=== PATIENT | male | born 1985 | race Caucasian/White ===

== ENCOUNTER 2016-10-18 18:08 | Inpatient (IN) | payer SELFPAY ==
[2016-10-18] VITALS (8 sets, daily range): BP systolic 89–134; BP diastolic 55–91
[~2016-10-18] VITALS: Ht 177.8 cm; Wt 95.3 kg
[~2016-10-18 18:08] MED LIST: IBUP-2055 PO
[2016-10-18] MEDS ORDERED: MIDAZOLAM 5 MG/5 ML (VERSED) VIAL ONE (18:10)
[2016-10-18] MEDS ORDERED: HALOPERIDOL 5 MG/ML (HALDOL) AMP IM ONE ×2 (18:15→18:45)
[2016-10-18] MEDS ORDERED: ETOMIDATE IV SOLN 20 MG/10 ML VIAL IV ONE (18:18)
[2016-10-18] MEDS ORDERED: SUCCINYLCHOLINE INJ 100 MG/5 ML SYR INJ ONE (18:18)
[2016-10-18] MEDS ORDERED: ROCURONIUM 50 MG/5 ML (ZEMURON) VIAL IV ONE (18:18)
[2016-10-18] MEDS ORDERED: MIDAZOLAM 5 MG/5 ML (VERSED) VIAL INJ ONE ×2 (18:18→18:45)
[2016-10-18] MEDS ORDERED: NS IV 1000 ML 1,000 ML ONE (18:20)
[2016-10-18] MEDS ORDERED: PROPOFOL DRIP (ICU) 100 ML IV ONE (18:29)
[2016-10-18] MEDS ORDERED: PROPOFOL DRIP (ICU) 100 ML IV SCH (18:45)
[2016-10-18] MEDS ORDERED: NS IV 1000 ML 1,000 ML IV SCH ×3 (18:45→23:30)
[2016-10-18] MEDS ORDERED: MIDAZOLAM 5 MG/5 ML (VERSED) VIAL IVP ONE (18:45)
--- NOTE | 2016-10-18 18:55 | ED Psychosocial ---
General Chief Complaint: Psych/Social Disorder Stated Complaint: METH USE Source: patient, police, EMS Exam Limitations: no limitations (JANUSZ UMANA APRN) History of Present Illness Time seen by provider: 18:50 Initial Comments To ER per EMS accompanied by [place] [employer] with concerns of substance abuse. Patient was apparently in someone's front yard somewhere here in [place] acting bizarrely believing that A sniper was going to shoot him. When the police arrived he requested that is around him to protect him from the Cipro. He was then loaded into the back of the ambulance where he was psychotic and belligerent and brought here. Timing/Duration: other Severity: moderate (JANUSZ UMANA APRN) Allergies and Home Medications Allergies Coded Allergies: No Known Drug Allergies (Unverified , 04/28/15) Home Medications Ibuprofen 200 Mg Tablet, 600-800 MG PO Q6H PRN for PAIN, (Reported) TAKES 3 TO 4 (200MG) TABLETS Constitutional: see HPI EENTM: see HPI Respiratory: no symptoms reported Cardiovascular: no symptoms reported Genitourinary: no symptoms reported Musculoskeletal: no symptoms reported Skin: no symptoms reported Psychiatric/Neurological: See HPI (JANUSZ UMANA APRN) Past Vpoonvr-Ckvorn-Bsctpo Hx Patient Social History Alcohol Beverage of Choice: Whiskey Drug of Choice: Meth Type Used: Cigarettes Recent Hopitalizations: No (JANUSZ UMANA APRN) Immunizations Up To Date Tetanus Booster (TDap): Unknown (JANUSZ UMANA APRN) Seasonal Allergies Seasonal Allergies: No (JANUSZ UMANA APRN) Surgeries Surgeries: Abdominal, Eye Surgery, Tonsillectomy (JANUSZ UMANA APRN) Respiratory Respiratory Disorders: Asthma Currently Using CPAP: No Currently Using BIPAP: No (JANUSZ UMANA APRN) Neurological Neurological Disorders: Seizure Disorder (JANUSZ UMANA APRN) Reproductive System Hx Reproductive Disorders: No (JANUSZ UMANA APRN) Psychosocial Behavioral Health Disorders: ADD/ADHD, Anxiety, Suicide Attempts, Depression (JANUSZ UMANA APRN) Physical Exam Vital Signs Vital Sign - Last 12Hours 10/18/16 10/18/16 10/18/16 10/18/16 18:08 19:34 20:18 20:45 Temp 98.7 Pulse 179 Resp 24 B/P (MAP) 179/108 Pulse Ox 96 O2 Delivery Mechanical Ventilator O2 Flow Rate 60.00 FiO2 60 (KATIE MARES) Vital Signs Capillary Refill : (JANUSZ UMANA APRN) General Appearance: WD/WN, no apparent distress HEENT: PERRL/EOMI, normal ENT inspection Neck: non-tender, full range of motion Respiratory: normal breath sounds, no respiratory distress, no accessory muscle use Cardiovascular: tachycardia (initial heart rate regular in the 170s) Gastrointestinal: normal bowel sounds, non tender, soft Extremities: normal range of motion, non-tender Neurologic/Psychiatric: alert Appearance/Memory: disheveled, impaired insight, impaired recent memory, impaired remote memory Behavior/Eye Contact: belligerent, compulsive, uncooperative Thoughts/Hallucinations: auditory hallucinations, delusions, flight of ideas, paranoid, scientology Skin: normal color, diaphoresis Comments On arrival to ER he was given 5 mg of intramuscular Versed as well as 5 mg of intramuscular Haldol without significant improvement in his psychosis, threatening behavior, delusions, paranoia. His heart rate was in the 170s regular narrow complex with a blood pressure in the 140 systolic. he initially refused IV start for labs and medication to control this and was extremely paranoid.. He was extremely diaphoretic. He was restrained by police officers multiple times initially during his ER stay totaling 3 police officers and two ER staff. After he was held down an IV was started, he was given 20 mg of etomidate and 100 mg of succinylcholine with the intent of intubation. He was intubated 1 attempt with a size 7.5 ET tube 21 cm at the teeth. Faint but positive breath sounds bilaterally, color change on the colorimeter, fogging ET tube and maintenance of oxygen saturation greater than 95 percent. Heart rate decreased to 130. 1901- propofol increase to 60 Mcg per kilogram as patient is moving both extremities and coughing at the tube. 50 mg rocuronium given. Pharmacy called to make drip of Versed for additional sedation. Heart rate down to 120 sinus. Blood pressure 120 systolic. Wolfe catheter draining dark yellow urine. Girlfriend at the bedside and states that he ran away from home 2 days ago and has a history of substance abuse. ET tube appeared a bit shallow on chest x- ray so it was deflated at the balloon and advanced about 1.5 cm reinflated with repeat x-ray. Both Dr. Diaz and Dr. Mares oversaw my care of the patient in the emergency room 1948-second liter of IV fluids is hanging and he's had about 500 mL of this. So total fluid intake in the emergency room is 1500 mL. His heart rate has come down nicely to the current rate of 103 sinus. Blood pressure however has dropped to 90/65. He remains on a propofol and Versed drip. We did reduce the rate of the propofol and continue the Versed drip at 10 mg an hour. He has been transported to ICU at this time. (JANUSZ UMANA APRN) Progress/Results/Core Measures Results/Orders Lab Results Laboratory Tests Test 10/18/16 18:42 10/18/16 18:48 10/18/16 19:07 10/18/16 23:52 Range/Units White Blood Count 10.7 4.3-11.0 10^3/uL Red Blood Count 5.36 4.35-5.85 10^6/uL Hemoglobin 15.7 13.3-17.7 G/DL Hematocrit 45 40-54 % Mean Corpuscular Volume 84 80-99 FL Mean Corpuscular Hemoglobin 29 25-34 PG Mean Corpuscular Hemoglobin Concent 35 32-36 G/DL Red Cell Distribution Width 13.7 10.0-14.5 % Platelet Count 252 130-400 10^3/uL Mean Platelet Volume 9.9 7.4-10.4 FL Neutrophils (%) (Auto) 76 H 42-75 % Lymphocytes (%) (Auto) 15 12-44 % Monocytes (%) (Auto) 6 0-12 % Eosinophils (%) (Auto) 1 0-10 % Basophils (%) (Auto) 1 0-10 % Neutrophils # (Auto) 8.2 H 1.8-7.8 X 10^3 Lymphocytes # (Auto) 1.6 1.0-4.0 X 10^3 Monocytes # (Auto) 0.7 0.0-1.0 X 10^3 Eosinophils # (Auto) 0.1 0.0-0.3 10^3/uL Basophils # (Auto) 0.1 0.0-0.1 10^3/uL Sodium Level 146 H 135-145 MMOL/L Potassium Level 3.0 L 3.6-5.0 MMOL/L Chloride Level 108 H 98-107 MMOL/L Carbon Dioxide Level 20 L 21-32 MMOL/L Anion Gap 18 H 5-14 MMOL/L Blood Urea Nitrogen 17 7-18 MG/DL Creatinine 1.26 0.60-1.30 MG/DL Estimat Glomerular Filtration Rate > 60 BUN/Creatinine Ratio 13 Glucose Level 110 H 70-105 MG/DL Calcium Level 9.0 8.5-10.1 MG/DL Total Bilirubin 1.6 H 0.1-1.0 MG/DL Aspartate Amino Transf (AST/SGOT) 33 5-34 U/L Alanine Aminotransferase (ALT/SGPT) 42 0-55 U/L Alkaline Phosphatase 77 40-136 U/L Total Creatine Kinase 684 H 30-200 U/L Myoglobin 618.8 H 10.0-92.0 NG/ML Total Protein 7.5 6.4-8.2 GM/DL Albumin 4.6 H 3.2-4.5 GM/DL Salicylates Level < 5.0 L 5.0-20.0 MG/DL Acetaminophen Level < 10 L 10-30 UG/ML Serum Alcohol < 10 <10 MG/DL Urine Color VISHAL H Urine Clarity SLIGHTLY CLOUDY Urine pH 7 5-9 Urine Specific [place] 1.015 L 1.016-1.022 Urine Protein 2+ H NEGATIVE Urine Glucose (UA) NEGATIVE NEGATIVE Urine Ketones 1+ H NEGATIVE Urine Nitrite NEGATIVE NEGATIVE Urine Bilirubin 1+ H NEGATIVE Urine Urobilinogen 8 H NORMAL MG/DL Urine Leukocyte Esterase 1+ H NEGATIVE Urine RBC (Auto) 1+ H NEGATIVE Urine RBC 0-2 /HPF Urine WBC 0-2 /HPF Urine Squamous Epithelial Cells 0-2 /HPF Urine Crystals PRESENT H /LPF Urine Uric Acid Crystals MODERATE H /LPF Urine Bacteria NONE /HPF Urine Casts NONE /LPF Urine Mucus NEGATIVE /LPF Urine Culture Indicated NO Urine Opiates Screen POSITIVE H NEGATIVE Urine Oxycodone Screen NEGATIVE NEGATIVE Urine Methadone Screen NEGATIVE NEGATIVE Urine Propoxyphene Screen NEGATIVE NEGATIVE Urine Barbiturates Screen NEGATIVE NEGATIVE Ur Tricyclic Antidepressants Screen NEGATIVE NEGATIVE Urine Phencyclidine Screen NEGATIVE NEGATIVE Urine Amphetamines Screen POSITIVE H NEGATIVE Urine Methamphetamines Screen POSITIVE H NEGATIVE Urine Benzodiazepines Screen NEGATIVE NEGATIVE Urine Cocaine Screen NEGATIVE NEGATIVE Urine Cannabinoids Screen NEGATIVE NEGATIVE Blood Gas Puncture Site LEFT RADIAL RIGHT RADIAL Blood Gas Patient Temperature 98.8 97.2 Arterial Blood pH 7.34 *L 7.40 7.37-7.43 Arterial Blood Partial Pressure CO2 44 35 35-45 MMHG Arterial Blood Partial Pressure O2 305 H 132 H 79-93 MMHG Arterial Blood HCO3 23 21 L 23-27 MMOL/L Arterial Blood Total CO2 24.6 22.3 21.0-31.0 MMOL/L Arterial Blood Oxygen Saturation 100 99 94-100 % Arterial Blood Base Excess -1.6 -3.0 L -2.5-2.5 MMOL/L Marcus Test YES-POS YES-POS Blood Gas Ventilator Setting YES YES Blood Gas Inspired Oxygen 100% 45% Test 10/19/16 00:25 10/19/16 04:10 10/19/16 04:19 Range/Units Potassium Level 3.7 3.6 3.6-5.0 MMOL/L Lactic Acid Level 0.52 0.50-2.00 MMOL/L Magnesium Level 2.5 H 2.5 H 1.8-2.4 MG/DL Total Creatine Kinase 1023 H 1093 H 30-200 U/L Blood Gas Puncture Site LEFT RADIAL Blood Gas Patient Temperature 95.3 Arterial Blood pH 7.44 H 7.37-7.43 Arterial Blood Partial Pressure CO2 32 L 35-45 MMHG Arterial Blood Partial Pressure O2 94 H 79-93 MMHG Arterial Blood HCO3 21 L 23-27 MMOL/L Arterial Blood Total CO2 22.5 21.0-31.0 MMOL/L Arterial Blood Oxygen Saturation 99 94-100 % Arterial Blood Base Excess -2.5 -2.5-2.5 MMOL/L Marcus Test YES-POS Blood Gas Ventilator Setting YES Blood Gas Inspired Oxygen 30% White Blood Count 11.4 H 4.3-11.0 10^3/uL Red Blood Count 4.60 4.35-5.85 10^6/uL Hemoglobin 13.7 13.3-17.7 G/DL Hematocrit 39 L 40-54 % Mean Corpuscular Volume 85 80-99 FL Mean Corpuscular Hemoglobin 30 25-34 PG Mean Corpuscular Hemoglobin Concent 35 32-36 G/DL Red Cell Distribution Width 14.0 10.0-14.5 % Platelet Count 193 130-400 10^3/uL Mean Platelet Volume 9.9 7.4-10.4 FL Neutrophils (%) (Auto) 60 42-75 % Lymphocytes (%) (Auto) 30 12-44 % Monocytes (%) (Auto) 7 0-12 % Eosinophils (%) (Auto) 3 0-10 % Basophils (%) (Auto) 0 0-10 % Neutrophils # (Auto) 6.9 1.8-7.8 X 10^3 Lymphocytes # (Auto) 3.4 1.0-4.0 X 10^3 Monocytes # (Auto) 0.8 0.0-1.0 X 10^3 Eosinophils # (Auto) 0.3 0.0-0.3 10^3/uL Basophils # (Auto) 0.1 0.0-0.1 10^3/uL Sodium Level 144 135-145 MMOL/L Chloride Level 116 H 98-107 MMOL/L Carbon Dioxide Level 19 L 21-32 MMOL/L Anion Gap 9 5-14 MMOL/L Blood Urea Nitrogen 16 7-18 MG/DL Creatinine 0.84 0.60-1.30 MG/DL Estimat Glomerular Filtration Rate > 60 BUN/Creatinine Ratio 19 Glucose Level 74 70-105 MG/DL Calcium Level 8.0 L 8.5-10.1 MG/DL Phosphorus Level 2.7 2.3-4.7 MG/DL (KATIE MARES) My Orders Orders - KATIE MARES Haloperidol Injection (Haldol Injectio (10/18/16 18:15) (KATIE MARES) Medications Given in ED Current Medications Medications Dose Ordered Sig/Yvette Route Start Time Stop Time Status Last Admin Dose Admin Haloperidol Lactate 5 mg ONCE ONCE IM 10/18/16 18:45 10/18/16 18:47 DC 10/18/16 18:13 5 MG Midazolam HCl 5 mg ONCE ONCE INJ 10/18/16 18:45 10/18/16 18:47 DC 10/18/16 18:19 5 MG Midazolam HCl 5 mg ONCE ONCE IVP 10/18/16 18:45 10/18/16 18:47 DC 10/18/16 18:35 5 MG (KATIE MARES) Vital Signs/I&O Vital Sign - Last 12Hours 10/18/16 10/18/16 10/18/16 10/18/16 19:34 19:58 20:18 20:30 Temp 98.8 Pulse 113 96 95 Resp 16 15 B/P (MAP) 94/58 96/55 Pulse Ox 97 99 O2 Delivery Mechanical Ventilator Mechanical Ventilator FiO2 60 10/18/16 10/18/16 10/18/16 10/18/16 20:31 20:45 21:45 22:00 Temp 96.6 Pulse 95 95 Resp 26 B/P (MAP) 134/91 89/72 Pulse Ox 95 O2 Delivery Mechanical Ventilator Mechanical Ventilator O2 Flow Rate 60.00 60.00 10/18/16 10/18/16 10/18/16 10/18/16 22:35 22:45 23:30 23:45 Pulse 87 89 86 84 Resp 15 15 14 15 B/P (MAP) 107/70 106/74 Pulse Ox 98 96 96 99 O2 Delivery Mechanical Ventilator Mechanical Ventilator O2 Flow Rate 50.00 50.00 FiO2 50 45 10/18/16 10/19/16 10/19/16 10/19/16 23:49 00:00 01:00 01:00 Pulse 85 80 76 Resp 15 B/P (MAP) 127/88 Pulse Ox 99 O2 Delivery Mechanical Ventilator Mechanical Ventilator O2 Flow Rate 50.00 FiO2 45 10/19/16 10/19/16 10/19/16 10/19/16 01:11 02:00 02:59 03:00 Pulse 76 75 75 Resp 15 15 15 B/P (MAP) 123/88 122/83 Pulse Ox 100 100 100 O2 Delivery Mechanical Ventilator Mechanical Ventilator Mechanical Ventilator O2 Flow Rate 50.00 50.00 FiO2 60 35 10/19/16 10/19/16 10/19/16 10/19/16 03:18 03:57 04:00 05:00 Pulse 76 78 79 85 Resp 15 15 15 B/P (MAP) 118/75 108/73 Pulse Ox 99 98 95 O2 Delivery Mechanical Ventilator Mechanical Ventilator O2 Flow Rate 35.00 35.00 FiO2 30 10/19/16 10/19/16 10/19/16 06:00 06:25 06:29 Pulse 96 95 95 Resp 14 15 B/P (MAP) 109/72 Pulse Ox 96 96 96 O2 Delivery Mechanical Ventilator O2 Flow Rate 35.00 FiO2 30 30 (KATIE MARES) Progress Note : Time: 06:36 Progress Note I personally helped oversee and liver care to the patient alongside Janusz Umana NP. I agree with the above assessment, findings and plan. Patient was appropriately treated to keep himself and others safe and family was present and all questions were answered and information was given to their satisfaction. I oversaw an ablation which was placed on first attempt with 7.5 at 21 cm at the teeth and then had to be advanced to get down closer to the matthew. Patient was burning through the propofol despite maximal dosing so Versed drip was added. Pharmacy was consulted to help with dosing. (KATIE MARES) Departure Communication Time/Spoke to Admitting Phy: 19:21 Communication Discussed the case with Dr. Beth who is on-call for [facility]. We will admit the patient to the ICU with eICU to manage. (JANUSZ UMANA APRN) Impression Impression: Primary Impression: acute violent psychosis Additional Impression: Substance abuse Disposition: ADMITTED INPATIENT Condition: Critical Admissions Decision to Admit Reason: Admit from ER (General) Decision to Admit/Date: Oct 18, 2016 Time/Decision to Admit Time: 19:22 (JANUSZ UMANA APRN) Departure-Patient Inst. Referrals: [facility] (PCP/Family) Primary Care Physician JANUSZ UMANA APRN Oct 18, 2016 18:55 KATIE MARES Oct 19, 2016 06:38
[2016-10-18 18:57] LABS: BASOPHILS # (AUTO) 0.1 10^3/uL (0.0-0.1); BASOPHILS % (AUTO) 1 % (0-10); EOSINOPHILS # (AUTO) 0.1 10^3/uL (0.0-0.3); EOSINOPHILS % (AUTO) 1 % (0-10); LYMPHOCYTES # (AUTO) 1.6 X 10^3 (1.0-4.0); LYMPHOCYTES % (AUTO) 15 % (12-44); MEAN CORPUSCULAR HEMOGLOBIN 29 PG (25-34); MEAN CORPUSCULAR HGB CONC 35 G/DL (32-36); MEAN CORPUSCULAR VOLUME 84 FL (80-99); MEAN PLATELET VOLUME 9.9 FL (7.4-10.4); MONOCYTES # (AUTO) 0.7 X 10^3 (0.0-1.0); MONOCYTES % (AUTO) 6 % (0-12); NEUTROPHILS # (AUTO) 8.2 X 10^3 (1.8-7.8); NEUTROPHILS % (AUTO) 76 % (42-75); PLATELET COUNT 252 10^3/uL (130-400); RED BLOOD COUNT 5.36 10^6/uL (4.35-5.85); RED CELL DISTRIBUTION WIDTH 13.7 % (10.0-14.5); WHITE BLOOD COUNT 10.7 10^3/uL (4.3-11.0)
[2016-10-18 18:59] LABS: BILIRUBIN,URINE 1+ (NEGATIVE); KETONES,URINE 1+ (NEGATIVE); LEUKOCYTE ESTERASE ,URINE 1+ (NEGATIVE); NITRITE,URINE NEGATIVE (NEGATIVE); PH,URINE 7 (5-9); PROTEIN,URINE 2+ (NEGATIVE); UROBILINOGEN,URINE 8 MG/DL (NORMAL)
[2016-10-18 19:10] LABS: ALANINE AMINOTRANSFERASE 42 U/L (0-55); ALBUMIN 4.6 GM/DL (3.2-4.5); ALCOHOL < 10 MG/DL (<10); ANION GAP 18 MMOL/L (5-14); ASPARTATE AMINO TRANSFERASE 33 U/L (5-34); BILIRUBIN,TOTAL 1.6 MG/DL (0.1-1.0); BLOOD UREA NITROGEN 17 MG/DL (7-18); BUN/CREATININE RATIO 13; CARBON DIOXIDE 20 MMOL/L (21-32); CHLORIDE 108 MMOL/L (98-107); CREATININE SERUM 1.26 MG/DL (0.60-1.30); GFR ESTIMATED > 60; GLUCOSE 110 MG/DL (70-105); SALICYLATE < 5.0 MG/DL (5.0-20.0); SODIUM 146 MMOL/L (135-145); TOTAL PROTEIN 7.5 GM/DL (6.4-8.2)
[2016-10-18 19:15] LABS: SQUAMOUS EPITHELIAL CELL,UR 0-2 /HPF; URIC ACID CRYSTALS,URINE MODERATE /LPF; WBC,URINE 0-2 /HPF
[2016-10-18 19:22] LABS: ABG BASE EXCESS -1.6 MMOL/L (-2.5-2.5); ABG HCO3 23 MMOL/L (23-27); ABG OXYGEN SATURATION 100 % (94-100); ABG PCO2 44 MMHG (35-45); ABG PO2 305 MMHG (79-93); ABG TCO2 24.6 MMOL/L (21.0-31.0)
[2016-10-18 19:25] LABS: ABG PH 7.34 (7.37-7.43)
[2016-10-18 19:26] LABS: ALLENS TEST YES-POS; PATIENT TEMP 98.8
[2016-10-18] MEDS: MIDAZOLAM INJECTION FOR DRIPS 50 MG in NS (IVPB) 90 ML IV SCH (19:34)
[2016-10-18 19:49] LABS: MYOGLOBIN SERUM 618.8 NG/ML (10.0-92.0)
--- NOTE | 2016-10-18 19:51 | Diagnostic Imaging Report ---
INDICATION: Shortness of breath. EXAMINATION: Portable chest at 7:01 p.m. FINDINGS: There is an ET tube with the tip at the thoracic inlet. NG tube projects over the stomach. Heart size and pulmonary vascularity are normal. Lungs are clear. IMPRESSION: No acute abnormalities in the chest. ET tube projects over the trachea at the thoracic inlet and could be safely advanced 7 cm. Dictated by: Dictated on workstation # [id number]
--- NOTE | 2016-10-18 19:52 | Diagnostic Imaging Report ---
INDICATION: ET tube reposition. EXAMINATION: Portable chest at 7:25 p.m. FINDINGS: ET tube has been advanced just beyond the thoracic inlet. Heart size and pulmonary vascularity are normal. Lungs are clear. There are no effusions or pneumothoraces. NG tube projects over the stomach. IMPRESSION: No acute abnormalities in the chest. Dictated by: Dictated on workstation # [id number]
--- NOTE | 2016-10-18 19:55 | Diagnostic Imaging Report ---
INDICATION: ET tube placement. Comparison with 01:27 p.m. FINDINGS: ET tube is present overlying the tracheal shadow at the thoracic inlet. NG tube is present and tip is looped within the fundus of the stomach. The lungs are well aerated. No infiltrates are present. Heart is not enlarged. IMPRESSION: Satisfactory ET tube and NG tube position. Dictated by: Dictated on workstation # [id number]
--- NOTE | 2016-10-18 19:56 | Diagnostic Imaging Report ---
INDICATION: ET tube repositioning. FINDINGS: ET tube is present overlying the tracheal shadow and tip is at the level of the aortic arch. NG tube is present with tip looped in the fundus of the stomach. The lungs are well aerated. IMPRESSION: Satisfactory ET tube and NG tube position. Dictated by: Dictated on workstation # [id number]
[2016-10-18 20:02] LABS: ACETAMINOPHEN < 10 UG/ML (10-30)
[2016-10-18] MEDS ORDERED: CATHETER FLUSH 10 ML SYR IV PRN (20:30)
[2016-10-18] MEDS: MIDAZOLAM DRIP 50 MG/NS 90 ML (TOTAL VOLUME 100 ML) IV SCH ×2 (20:31)
[2016-10-18] MEDS: NS IV 1000 ML 1,000 ML IV SCH (20:31)
[2016-10-18] MEDS: PANTOPRAZOLE 40 MG/10 ML (PROTONIX) VIAL IV SCH (20:35)
[2016-10-18] MEDS ORDERED: fentaNYL INJECTION 100 MCG/2 ML AMP ONE (20:59)
[2016-10-18] MEDS ORDERED: LORazepam INJ 2 MG/ML (ATIVAN) VIAL ONE (21:00)
[2016-10-18] MEDS ORDERED: fentaNYL INJECTION 100 MCG/2 ML AMP IV ONE (22:00)
[2016-10-18] MEDS ORDERED: LORazepam INJ 2 MG/ML (ATIVAN) VIAL IV ONE (22:00)
[2016-10-18] MEDS: PROPOFOL DRIP (ICU) 100 ML IV SCH (23:49)
[2016-10-18 23:57] LABS: ABG HCO3 21 MMOL/L (23-27); ABG OXYGEN SATURATION 99 % (94-100); ABG PCO2 35 MMHG (35-45); ABG PO2 132 MMHG (79-93); ABG TCO2 22.3 MMOL/L (21.0-31.0)
[2016-10-18 23:58] LABS: ALLENS TEST YES-POS
[2016-10-18 23:59] LABS: PATIENT TEMP 97.2
[2016-10-19] VITALS (35 sets, daily range): BP systolic 100–143; BP diastolic 65–89
[2016-10-19 01:11] LABS: MAGNESIUM 2.5 MG/DL (1.8-2.4); POTASSIUM 3.7 MMOL/L (3.6-5.0)
[2016-10-19] MEDS: PROPOFOL DRIP (ICU) 100 ML IV SCH ×6 (03:18→20:49)
[2016-10-19 04:21] LABS: ABG BASE EXCESS -2.5 MMOL/L (-2.5-2.5); ABG HCO3 21 MMOL/L (23-27); ABG OXYGEN SATURATION 99 % (94-100); ABG PCO2 32 MMHG (35-45); ABG PH 7.44 (7.37-7.43); ABG PO2 94 MMHG (79-93); ABG TCO2 22.5 MMOL/L (21.0-31.0)
[2016-10-19 04:23] LABS: ALLENS TEST YES-POS; PATIENT TEMP 95.3
[2016-10-19 04:29] LABS: BASOPHILS # (AUTO) 0.1 10^3/uL (0.0-0.1); BASOPHILS % (AUTO) 0 % (0-10); EOSINOPHILS # (AUTO) 0.3 10^3/uL (0.0-0.3); EOSINOPHILS % (AUTO) 3 % (0-10); LYMPHOCYTES # (AUTO) 3.4 X 10^3 (1.0-4.0); LYMPHOCYTES % (AUTO) 30 % (12-44); MEAN CORPUSCULAR HEMOGLOBIN 30 PG (25-34); MEAN CORPUSCULAR HGB CONC 35 G/DL (32-36); MEAN CORPUSCULAR VOLUME 85 FL (80-99); MEAN PLATELET VOLUME 9.9 FL (7.4-10.4); MONOCYTES # (AUTO) 0.8 X 10^3 (0.0-1.0); MONOCYTES % (AUTO) 7 % (0-12); NEUTROPHILS # (AUTO) 6.9 X 10^3 (1.8-7.8); NEUTROPHILS % (AUTO) 60 % (42-75); PLATELET COUNT 193 10^3/uL (130-400); WHITE BLOOD COUNT 11.4 10^3/uL (4.3-11.0)
[2016-10-19 04:52] LABS: ANION GAP 9 MMOL/L (5-14); BLOOD UREA NITROGEN 16 MG/DL (7-18); BUN/CREATININE RATIO 19; CARBON DIOXIDE 19 MMOL/L (21-32); CHLORIDE 116 MMOL/L (98-107); CREATINE KINASE 1093 U/L (30-200); CREATININE SERUM 0.84 MG/DL (0.60-1.30); GFR ESTIMATED > 60; GLUCOSE 74 MG/DL (70-105); MAGNESIUM 2.5 MG/DL (1.8-2.4); PHOSPHORUS 2.7 MG/DL (2.3-4.7); POTASSIUM 3.6 MMOL/L (3.6-5.0); SODIUM 144 MMOL/L (135-145)
[2016-10-19] MEDS: NS IV 1000 ML 1,000 ML IV SCH ×6 (04:56→15:33)
[2016-10-19] MEDS: POTASSIUM CL 10MEQ/50ML IVPB 50 ML IV SCH ×2 (04:56→06:22)
[2016-10-19] MEDS: MAGNESIUM 1 GM/100 ML IVPB 100 ML IV SCH (04:56)
--- NOTE | 2016-10-19 06:26 | Pulmonary Consultation ---
History of Present Illness History of Present Illness Date of Consultation 10/19/16 06:21 Time Seen by Provider: 06:21 Date of Admission History of Present Illness 31yo presented to ED via PD and EMS secondary to acute violent paranoid psychosis. Pt was in a front yard of a stranger acting bizarre believing a sniper was shooting at him. Pt's girl friend stated that he has been missing x 2 -3 days. UDS was positive for opiates, methamphetamines, PT was intubated in ED to control behavior. I am consulted for ICU management. Unable to obtain ROS seocndary to sedation T Allergies and Home Medications Allergies Coded Allergies: No Known Drug Allergies (Unverified , 04/28/15) Home Medications Ibuprofen 200 Mg Tablet, 600-800 MG PO Q6H PRN for PAIN, (Reported) TAKES 3 TO 4 (200MG) TABLETS Past Izybcyr-Tbahff-Xcmsym Hx Patient Social History Alcohol Use: Regular Use Number of Drinks Today: GG Alcohol Beverage of Choice: Whiskey Recreational Drug Use: Yes (METH) Drug of Choice: METH Smoking Status: Current Everyday Smoker Type Used: Cigarettes Recent Foreign Travel: No Contact w/Someone Who Travel: No Recent Infectious Disease Expo: No Recent Hopitalizations: No Physical Abuse: No Sexual Abuse: No Immunizations Up To Date Tetanus Booster (TDap): Unknown Seasonal Allergies Seasonal Allergies: No Surgeries History of Surgeries: Yes Surgeries: Abdominal, Eye Surgery, Tonsillectomy Respiratory History of Respiratory Disorde: Yes (ASTHMA CHILD) Respiratory Disorders: Asthma Currently Using CPAP: No Currently Using BIPAP: No Cardiovascular History of Cardiac Disorders: No Neurological History of Neurological Disord: Yes Neurological Disorders: Seizure Disorder Reproductive System Hx Reproductive Disorders: No Genitourinary History of Genitourinary Disor: No Gastrointestinal History of Gastrointestinal Di: No Musculoskeletal History of Musculoskeletal Dis: No Endocrine History of Endocrine Disorders: No HEENT History of HEENT Disorders: No Cancer History of Cancer: No Psychosocial History of Psychiatric Problem: Yes (POLYSUBSTANCE ABUSE; HERE 04/2015 FOR SUICIDAL IDEATIONS--NO PSYCH ADMITS) Behavioral Health Disorders: ADD/ADHD, Anxiety, Suicide Attempts, Depression Suicide Risk Score: 0 Integumentary History of Skin or Integumenta: No Blood Transfusions History of Blood Disorders: No Adverse Reaction to a Blood Tr: No Review of Systems Time Seen by Provider: 08:39 Exam Exam Vital Signs Date Time Temp Pulse Resp B/P (MAP) Pulse Ox O2 Delivery O2 Flow Rate FiO2 10/19/16 06:00 96 14 109/72 96 Mechanical Ventilator 35.00 10/19/16 05:00 85 15 108/73 95 Mechanical Ventilator 35.00 10/19/16 04:00 79 15 118/75 98 Mechanical Ventilator 35.00 10/19/16 03:57 78 15 99 30 10/19/16 03:18 76 10/19/16 03:00 75 15 122/83 100 Mechanical Ventilator 50.00 10/19/16 02:59 75 15 100 35 10/19/16 02:00 76 15 123/88 100 Mechanical Ventilator 50.00 10/19/16 01:11 Mechanical Ventilator 60 10/19/16 01:00 76 10/19/16 01:00 80 15 127/88 99 Mechanical Ventilator 50.00 10/19/16 00:00 Mechanical Ventilator 45 10/18/16 23:49 85 10/18/16 23:45 84 15 99 45 10/18/16 23:30 86 14 106/74 96 Mechanical Ventilator 50.00 10/18/16 22:45 89 15 107/70 96 Mechanical Ventilator 50.00 10/18/16 22:35 87 15 98 50 10/18/16 22:00 96.6 10/18/16 21:45 95 26 89/72 95 Mechanical Ventilator 60.00 10/18/16 20:45 134/91 Mechanical Ventilator 60.00 10/18/16 20:31 95 10/18/16 20:30 95 10/18/16 20:18 96 15 99 60 10/18/16 19:58 96/55 Mechanical Ventilator 10/18/16 19:34 98.8 113 16 94/58 97 Mechanical Ventilator 10/18/16 18:08 98.7 179 24 179/108 96 General Appearance: No Apparent Distress (pt is sedated on vent ) Neck: Full Range of Motion, Supple, No JVD Respiratory: Lungs Clear, Normal Breath Sounds, No Accessory Muscle Use, No Respiratory Distress Cardiovascular: Regular Rate, Rhythm, No Edema, Normal Peripheral Pulses Capillary Refill: Less Than 3 Seconds Gastrointestinal: normal bowel sounds, non tender, soft Extremity: Normal Capillary Refill, Normal Inspection Neurologic/Psychiatric: No Alert, No Oriented x3 Skin: Normal Color, Warm/Dry Lymphatic: No Adenopathy Results Lab Laboratory Tests 10/18/16 18:42 10/19/16 00:25 10/19/16 04:19 Assessment/Plan Assessment/Plan Acute violent psychosis secondary to methamphetamine use -Pt was intubated and sedated in ED to control behavior -Will leave on ventilator for another approx 24hrs -Pt has recently been in rehab -Add fentanyl gtt at 12.5-25mcg/hr -- decrease Diprivan as tolerated Aspiration pneumonia -start zosyn -check sputum culture Hypoglycemia -start TF Rhabdomyolysis secondary to methamphetamine use -Will give another liter of IVF and increase base rate to 150cc/hr -Monitor Metabolic acidosis -IVF and monitor Hx of heavy alcohol use -monitor for withdrawal -seizure precautions - pt does have hx -Bananna bag - Clinical Quality Measures DVT/VTE Risk/Contraindication: Risk Factor Score Per Nursin RFS Level Per Nursing on Admit: 1=Low/No VTE PPX DORI CALABRESE DO Oct 19, 2016 06:26
[2016-10-19] MEDS ORDERED: PIPERACILLIN SODIUM/TAZOBACTAM 4.5 GM in NS (IVPB) 100 ML IV SCH (06:45)
[2016-10-19] MEDS ORDERED: RT-ALBUTEROL/IPRATROPIUM 3 ML (DUONEB) VIAL INH PRN ×2 (06:45→07:15)
[2016-10-19] MEDS ORDERED: RT-ALBUTEROL/IPRATROPIUM 3 ML (DUONEB) VIAL INH SCH ×2 (07:00→09:00)
[2016-10-19] MEDS ORDERED: PIPERACILLIN/TAZOBACTAM 4.5 GM/NS 100 ML IV NR ×2 (07:00)
[2016-10-19] MEDS ORDERED: fentaNYL INJECTION 1,250 MCG in NS (IVPB) 225 ML IV SCH (07:15)
[2016-10-19] MEDS: MIDAZOLAM INJECTION FOR DRIPS 50 MG in NS (IVPB) 90 ML IV SCH (07:57)
[2016-10-19] MEDS: ENOXAPARIN 40 MG/0.4 ML (LOVENOX) SYR SC SCH (08:48)
[2016-10-19] MEDS: THIAMINE INJECTION 100 MG, FOLIC ACID INJECTION 1 MG, VITAMIN MULTI INJECTION 10 ML, MA... IV SCH ×5 (08:49)
[2016-10-19] MEDS: PANTOPRAZOLE 40 MG/10 ML (PROTONIX) VIAL IV SCH (08:49)
[2016-10-19] MEDS ORDERED: THIAMINE INJECTION 100 MG, FOLIC ACID INJECTION 1 MG, VITAMIN MULTI INJECTION 10 ML, MA... IV SCH ×5 (09:00)
--- NOTE | 2016-10-19 09:16 | Diagnostic Imaging Report ---
INDICATION: Dyspnea, followup intubation. DISCUSSION: Single portable upright view of the chest was obtained, comparison 10/18/2016. Endotracheal tube remains in good position within the midtrachea. Enteric tube tip remains in the gastric body. Stable normal heart size. Low lung volumes with mild atelectasis noted within the right lung base. No pleural fluid or pneumothorax. IMPRESSION: 1. Stable support lines. No acute cardiopulmonary process. Dictated by: Dictated on workstation # [id number]
[2016-10-19] MEDS: RT-ALBUTEROL/IPRATROPIUM 3 ML (DUONEB) VIAL INH SCH ×4 (10:13→23:07)
--- NOTE | 2016-10-19 11:48 | History & Physical-Hospitalist ---
HPI History of Present Illness: HPI/Chief Complaint CC: Psychotic episode HPI: This is a 31 yoWM pt of [facility] that required intubation in ER due to violent behavior when found down in front yard of house. 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 Beth. Source: RN/MD Exam Limitations: clinical condition Date Seen 10/19/16 Time Seen by Provider: 10:00 Attending Physician Rose Beth DO PCP [facility] [place] Referring Physician Date of Admission Oct 18, 2016 at 19:20 Home Medications & Allergies Home Medications Reviewed patient Home Medication Reconciliation Form Allergies Allergies Coded Allergies No Known Drug Allergies (Unverified04/28/15) Past Gmbmzja-Dallwm-Iatwyx Hx Patient Social History Alcohol Use: Regular Use Number of Drinks Today: GG Alcohol Beverage of Choice: Whiskey Recreational Drug Use: Yes (METH) Drug of Choice: METH Smoking Status: Current Everyday Smoker Type Used: Cigarettes Physical Abuse Screen: No Sexual Abuse: No Recent Foreign Travel: No Contact w/other who traveled: No Recent Hopitalizations: No Recent Infectious Disease Expo: No Immunizations Up To Date Tetanus Booster (TDap): Unknown Seasonal Allergies Seasonal Allergies: No Surgeries Yes Abdominal, Eye Surgery, Tonsillectomy Respiratory Yes (ASTHMA CHILD) Asthma Currently Using CPAP: No Currently Using BIPAP: No Cardiovascular No Neurological Yes Seizure Disorder Reproductive System Hx Reproductive Disorders: No Genitourinary No Gastrointestinal No Musculoskeletal No Endocrine History of Endocrine Disorders: No HEENT History of HEENT Disorders: No Cancer No Psychosocial History of Psychiatric Problem: Yes (POLYSUBSTANCE ABUSE; HERE 04/2015 FOR SUICIDAL IDEATIONS--NO PSYCH ADMITS) Behavioral Health Disorders: ADD/ADHD, Anxiety, Suicide Attempts, Depression Integumentary History of Skin or Integumenta: No Blood Transfusions History of Blood Disorders: No Adverse Reaction to a Blood Tr: No Review of Systems ROS-Unable to Obtain: unable to ascertain due to intubation Constitutional: see HPI Physical Exam Physical Exam Vital Signs Vital Sign - Last 12Hours 10/18/16 10/18/16 10/18/16 10/18/16 18:08 19:34 20:18 20:45 Temp 98.7 Pulse 179 Resp 24 B/P (MAP) 179/108 Pulse Ox 96 O2 Delivery Mechanical Ventilator O2 Flow Rate 60.00 FiO2 60 Capillary Refill : Less Than 3 Seconds General Appearance: No Apparent Distress, WD/WN Eyes: Bilateral Eye Normal Inspection, Bilateral Eye PERRL HEENT: Other (intubated) Respiratory: Lungs Clear, Normal Breath Sounds, Other (on ventilator) Cardiovascular: Regular Rate, Rhythm, No Edema, No Gallop, No JVD, No Murmur, Normal Peripheral Pulses Gastrointestinal: Normal Bowel Sounds, No Organomegaly, No Pulsatile Mass, Soft Extremity: Normal Capillary Refill, Normal Inspection, Non Tender, No Pedal Edema Neurologic/Psychiatric: Other (intubated) Skin: Normal Color, Warm/Dry Lymphatic: No Adenopathy Results Results/Procedures Lab Laboratory Tests 10/18/16 18:42 10/19/16 00:25 10/19/16 04:19 Assessment/Plan Admission Diagnosis Assessment: Severe violent behavior due to methamphetamine use and likely psych disorder requiring intubation Assessment and Plan Plan: Remain intubated Maintain on Fentanyl drip Monitor pt Clinical Quality Measures DVT/VTE Risk/Contraindication: Risk Factor Score Per Nursin RFS Level Per Nursing on Admit: 1=Low/No VTE PPX ROSE BETH DO Oct 19, 2016 11:47
[2016-10-19] MEDS: PIPERACILLIN/TAZOBACTAM 4.5 GM/NS 100 ML IVPB IV SCH ×4 (13:29→20:50)
[2016-10-19] MEDS ORDERED: MIDAZOLAM INJECTION FOR DRIPS 50 MG in NS (IVPB) 90 ML IV SCH (13:45)
[2016-10-19] MEDS ORDERED: inSUlin (REGULAR) HUMAN 1 UNIT/0.01 ML (CHARGE PER UNIT) SC SCH (18:00)
[2016-10-19] MEDS ORDERED: DEXTROSE 50% 50 ML (IMS) SYR ONE (18:18)
[2016-10-19] MEDS ORDERED: D5 1/2 NS 1000 ML IV SOLUTION 1,000 ML IV ONE (18:18)
[2016-10-19] MEDS ORDERED: DEXTROSE 50% 50 ML (IMS) SYR IV NR ×2 (18:30→18:45)
[2016-10-19] MEDS: D5 1/2 NS 1000 ML IV SOLUTION 1,000 ML IV SCH (18:37)
--- NOTE | 2016-10-19 19:22 | Diagnostic Imaging Report ---
INDICATION: Aspiration. COMPARISON STUDY: Chest from 04:00 a.m. FINDINGS: Portable supine view of the chest demonstrates an endotracheal tube and orogastric tube remaining in place. Heart size and vascularity are normal. Lungs appear clear. IMPRESSION: Stable life support tubes. There are no acute findings. Dictated by: Dictated on workstation # [id number]
[2016-10-19] MEDS: MIDAZOLAM DRIP 50 MG/NS 90 ML (TOTAL VOLUME 100 ML) IV SCH ×2 (20:31)
[2016-10-19] MEDS ORDERED: ACETAMINOPHEN 650 MG SUPP (TYLENOL) PR PRN (23:45)
[2016-10-20] VITALS (29 sets, daily range): BP systolic 91–146; BP diastolic 58–102
[2016-10-20] MEDS: PROPOFOL DRIP (ICU) 100 ML IV SCH ×3 (00:05→06:01)
[2016-10-20] MEDS ORDERED: MIDAZOLAM FOR DRIPS 10 MG/2 ML VIAL ONE (01:08)
[2016-10-20] MEDS ORDERED: NS (IVPB) 100 ML ONE (01:09)
[2016-10-20] MEDS: D5 1/2 NS 1000 ML IV SOLUTION 1,000 ML IV SCH ×4 (01:20→22:17)
[2016-10-20] MEDS: MIDAZOLAM DRIP 50 MG/NS 90 ML (TOTAL VOLUME 100 ML) IV SCH ×2 (01:20)
[2016-10-20] MEDS: RT-ALBUTEROL/IPRATROPIUM 3 ML (DUONEB) VIAL INH SCH ×6 (02:32→21:26)
[2016-10-20] MEDS: PIPERACILLIN/TAZOBACTAM 4.5 GM/NS 100 ML IVPB IV SCH ×6 (04:38→21:41)
[2016-10-20 05:16] LABS: BASOPHILS % (AUTO) 0 % (0-10); EOSINOPHILS # (AUTO) 0.4 10^3/uL (0.0-0.3); EOSINOPHILS % (AUTO) 2 % (0-10); LYMPHOCYTES # (AUTO) 2.8 X 10^3 (1.0-4.0); LYMPHOCYTES % (AUTO) 16 % (12-44); MEAN CORPUSCULAR HEMOGLOBIN 30 PG (25-34); MEAN CORPUSCULAR HGB CONC 34 G/DL (32-36); MEAN CORPUSCULAR VOLUME 88 FL (80-99); MEAN PLATELET VOLUME 10.3 FL (7.4-10.4); MONOCYTES # (AUTO) 1.2 X 10^3 (0.0-1.0); MONOCYTES % (AUTO) 7 % (0-12); NEUTROPHILS % (AUTO) 75 % (42-75); PLATELET COUNT 177 10^3/uL (130-400); RED BLOOD COUNT 4.39 10^6/uL (4.35-5.85); RED CELL DISTRIBUTION WIDTH 14.4 % (10.0-14.5); WHITE BLOOD COUNT 17.4 10^3/uL (4.3-11.0)
[2016-10-20 05:36] LABS: ANION GAP 11 MMOL/L (5-14); BLOOD UREA NITROGEN 7 MG/DL (7-18); BUN/CREATININE RATIO 8; CALCIUM 7.7 MG/DL (8.5-10.1); CARBON DIOXIDE 21 MMOL/L (21-32); CHLORIDE 113 MMOL/L (98-107); CREATININE SERUM 0.89 MG/DL (0.60-1.30); GFR ESTIMATED > 60; GLUCOSE 108 MG/DL (70-105); MAGNESIUM 2.3 MG/DL (1.8-2.4); PHOSPHORUS 2.3 MG/DL (2.3-4.7); SODIUM 145 MMOL/L (135-145)
[2016-10-20 05:45] LABS: ABG BASE EXCESS -1.3 MMOL/L (-2.5-2.5); ABG HCO3 25 MMOL/L (23-27); ABG OXYGEN SATURATION 63 % (94-100); ABG PCO2 57 MMHG (35-45); ABG TCO2 26.3 MMOL/L (21.0-31.0)
[2016-10-20 05:46] LABS: BAND NEUTROPHILS 4 %; EOSINOPHILS % (MANUAL) 2 %; LYMPHOCYTES % (MANUAL) 15 %; NEUTROPHILS % (MANUAL) 77 %
[2016-10-20 05:49] LABS: ABG PH 7.26 (7.37-7.43); ABG PO2 39 MMHG (79-93); PATIENT TEMP 99.9
[2016-10-20 06:00] LABS: ABG BASE EXCESS -0.4 MMOL/L (-2.5-2.5); ABG HCO3 24 MMOL/L (23-27); ABG OXYGEN SATURATION 94 % (94-100); ABG PCO2 46 MMHG (35-45); ABG PH 7.35 (7.37-7.43); ABG PO2 69 MMHG (79-93); ABG TCO2 25.7 MMOL/L (21.0-31.0)
[2016-10-20 06:01] LABS: ALLENS TEST YES-POS; PATIENT TEMP 99.9
[2016-10-20] MEDS: MAGNESIUM 1 GM/100 ML IVPB 100 ML IV SCH (06:20)
[2016-10-20] MEDS: POTASSIUM CL 10MEQ/50ML IVPB 50 ML IV SCH ×6 (06:21→09:36)
[2016-10-20] MEDS: ENOXAPARIN 40 MG/0.4 ML (LOVENOX) SYR SC SCH (06:27)
--- NOTE | 2016-10-20 07:36 | Pulmonary Progress Note ---
Subjective Time Seen by Provider: 07:45 Subjective/Events-last exam PT sedated on vent currently Exam Exam Vital Signs Date Time Temp Pulse Resp B/P (MAP) Pulse Ox O2 Delivery O2 Flow Rate FiO2 10/20/16 06:14 92 19 94 25 10/20/16 06:01 90 10/20/16 06:00 90 16 130/79 95 Mechanical Ventilator 30.00 10/20/16 05:30 99.9 10/20/16 05:00 94 18 133/82 94 Mechanical Ventilator 30.00 10/20/16 04:20 96 18 94 25 10/20/16 04:00 98 18 130/77 94 Mechanical Ventilator 30.00 10/20/16 04:00 96 Mechanical Ventilator 25.00 10/20/16 03:00 103 19 132/85 95 Mechanical Ventilator 30.00 10/20/16 02:57 103 129/72 10/20/16 02:32 98 19 94 25 10/20/16 02:00 101 18 129/72 93 Mechanical Ventilator 30.00 10/20/16 01:20 110 138/76 10/20/16 01:00 110 19 129/88 93 Mechanical Ventilator 30.00 10/20/16 01:00 112 10/20/16 00:30 100.5 10/20/16 00:29 100.5 10/20/16 00:25 115 20 96 25 10/20/16 00:05 118 23 163/72 10/20/16 00:00 96 Mechanical Ventilator 30.00 10/20/16 00:00 121 21 125/65 93 Mechanical Ventilator 30.00 10/19/16 23:45 102.4 10/19/16 23:15 102.4 10/19/16 23:07 101 19 94 30 10/19/16 23:00 93 15 121/69 96 Mechanical Ventilator 30.00 10/19/16 22:00 93 20 128/81 95 Mechanical Ventilator 30.00 10/19/16 21:07 91 19 95 30 10/19/16 21:00 101 16 125/84 97 Mechanical Ventilator 30.00 10/19/16 20:49 100 17 123/70 97 Mechanical Ventilator 10/19/16 20:00 101.3 105 16 123/70 96 Mechanical Ventilator 30.00 10/19/16 20:00 96 Mechanical Ventilator 30.00 10/19/16 19:13 96 21 95 30 10/19/16 19:00 95 10/19/16 19:00 95 20 136/89 100 Mechanical Ventilator 30.00 10/19/16 18:00 87 15 130/85 97 Mechanical Ventilator 30.00 10/19/16 17:27 86 132/87 Mechanical Ventilator 30.00 10/19/16 17:00 89 15 133/87 97 Mechanical Ventilator 30.00 10/19/16 16:35 90 15 98 30 10/19/16 16:00 Mechanical Ventilator 30 10/19/16 16:00 90 15 121/81 98 Mechanical Ventilator 30.00 10/19/16 16:00 99.0 Mechanical Ventilator 30.00 10/19/16 15:00 98 16 140/89 97 Mechanical Ventilator 30.00 10/19/16 14:13 98 19 123/81 92 Mechanical Ventilator 35.00 10/19/16 14:02 80 15 97 30 10/19/16 14:00 80 17 123/81 97 Mechanical Ventilator 30.00 10/19/16 13:00 80 17 113/74 97 Mechanical Ventilator 30.00 10/19/16 13:00 80 10/19/16 12:22 84 18 96 30 10/19/16 12:00 87 15 110/75 96 Mechanical Ventilator 30.00 10/19/16 12:00 Mechanical Ventilator 30 10/19/16 12:00 97.9 Mechanical Ventilator 30.00 10/19/16 11:00 90 14 114/79 96 Mechanical Ventilator 30.00 10/19/16 10:22 105/68 10/19/16 10:13 87 16 92 30 10/19/16 10:00 87 16 108/65 94 Mechanical Ventilator 30.00 10/19/16 09:00 93 17 100/65 92 Mechanical Ventilator 30.00 10/19/16 08:13 94 15 96 30 10/19/16 08:00 93 14 108/67 96 Mechanical Ventilator 30.00 10/19/16 08:00 99.9 Mechanical Ventilator 30.00 10/19/16 08:00 Mechanical Ventilator 30 10/19/16 07:57 99.9 94 15 107/67 Mechanical Ventilator 30.00 I & O 10/21/16 07:00 Intake Total 50 ml Balance 50 ml General Appearance: No Apparent Distress, WD/WN HEENT: Other (intubated) Neck: Full Range of Motion, Supple, No JVD Respiratory: Lungs Clear, Normal Breath Sounds, Other (on ventilator) Cardiovascular: Regular Rate, Rhythm, No Edema, No Gallop, No JVD, No Murmur, Normal Peripheral Pulses Capillary Refill: Less Than 3 Seconds Gastrointestinal: normal bowel sounds, non tender, soft Extremity: Normal Capillary Refill, Normal Inspection, Non Tender, No Pedal Edema Neurologic/Psychiatric: Other (intubated) Skin: Normal Color, Warm/Dry Lymphatic: No Adenopathy Results Lab Laboratory Tests 10/18/16 18:42 10/19/16 00:25 10/19/16 04:19 10/20/16 04:36 Assessment/Plan Assessment/Plan Acute violent psychosis secondary to methamphetamine use -Pt was intubated and sedated in ED to control behavior -Will try to wake pt up and extubate -Pt has recently been in rehab - fentanyl gtt at 12.5-25mcg/hr -- decrease Diprivan as tolerated Aspiration pneumonia -pt aspirated TF yesterday while trying to pull tubes out - zosyn -repan culture Hypoglycemia -stop TF Rhabdomyolysis secondary to methamphetamine use -Will give another liter of IVF and increase base rate to 150cc/hr -Monitor Metabolic acidosis -IVF and monitor Hx of heavy alcohol use -monitor for withdrawal -seizure precautions - pt does have hx -Bananna bag Clinical Quality Measures DVT/VTE Risk/Contraindication: Risk Factor Score Per Nursin RFS Level Per Nursing on Admit: 1=Low/No VTE PPX DORI CALABRESE DO Oct 20, 2016 07:36
[2016-10-20] MEDS ORDERED: HALOPERIDOL 5 MG/ML (HALDOL) AMP IV PRN (07:45)
[2016-10-20] MEDS ORDERED: LORazepam INJ 2 MG/ML (ATIVAN) VIAL IVP PRN (07:45)
[2016-10-20] MEDS ORDERED: morphine INJ 4 MG/ML 1 ML (VIAL/SYRINGE) IVP PRN (07:45)
[2016-10-20] MEDS ORDERED: NS (IVPB) 50 ML ONE (07:50)
[2016-10-20] MEDS ORDERED: HALOPERIDOL 5 MG/ML (HALDOL) AMP ONE (07:50)
[2016-10-20] MEDS: PANTOPRAZOLE 40 MG/10 ML (PROTONIX) VIAL IV SCH (08:12)
[2016-10-20] MEDS: HALOPERIDOL 5 MG/ML (HALDOL) AMP IV SCH ×2 (08:12→21:41)
[2016-10-20] MEDS: DEXMEDETOMIDINE INJECTION 400 MCG in NS (IVPB) 100 ML IV SCH (08:13)
--- NOTE | 2016-10-20 08:59 | Diagnostic Imaging Report ---
INDICATION: Respiratory distress Portable chest shows normal heart size and vascularity. There is minimal basilar discoid atelectasis. No infiltrates or effusions are seen. The ET tube is in good position. OG tube is in the stomach. IMPRESSION: Minimal discoid atelectasis. The chest is similar to the 10/19/16 study. Dictated by: Dictated on workstation # [id number]
[2016-10-20] MEDS: THIAMINE INJECTION 100 MG, FOLIC ACID INJECTION 1 MG, VITAMIN MULTI INJECTION 10 ML, MA... IV SCH ×5 (09:35)
--- NOTE | 2016-10-20 11:03 | Progress Note-Hospitalist ---
Subjective HPI/CC On Admission Date Seen by Provider: Oct 20, 2016 Time Seen by Provider: 07:00 CC: Psychotic episode HPI: This is a 31 yoWM pt of [facility] that required intubation in ER due to violent behavior when found down in front yard of house. 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 Beth. Subjective/Events-last exam patient sedated on vent appears to be in no acute distress. Significant other at bedside reports only meth use and usual heavy drinking although he been absent for 48 hours and she does not know about alcohol or any other illicit drug use during that period of time. In the past is been predominantly meth and alcohol abuse. Patient has a history of previous psychotic reactions to methamphetamine. Objective Exam Vital Signs Vital Sign - Last 12Hours 10/18/16 10/18/16 10/18/16 10/18/16 18:08 19:34 20:18 20:45 Temp 98.7 Pulse 179 Resp 24 B/P (MAP) 179/108 Pulse Ox 96 O2 Delivery Mechanical Ventilator O2 Flow Rate 60.00 FiO2 60 Capillary Refill : Less Than 3 Seconds General Appearance: No Apparent Distress Neck: Full Range of Motion, Normal Inspection Respiratory: Chest Non Tender, Lungs Clear, Normal Breath Sounds, No Accessory Muscle Use, No Respiratory Distress Cardiovascular: Regular Rate, Rhythm, No Edema, No Gallop, No JVD, No Murmur, Normal Peripheral Pulses Gastrointestinal: Normal Bowel Sounds, No Organomegaly, No Pulsatile Mass, Non Tender, Soft Results/Procedures Lab Laboratory Tests 10/20/16 04:36 Assessment/Plan Assessment and Plan Assess & Plan/Chief Complaint 1. Methamphetamine abuse with acute psychosis ventilated for patient and societal safety. After discussion with Dr. Bonilla Verssara drip has been stopped with sedation lightening with a goal of extubation later today. 2. Aspiration continue to monitor for any evidence for pneumonia not present at this time. 3. History of alcohol use disorder monitor for withdrawal. ANDREA NAIR MD Oct 20, 2016 11:03
[2016-10-20] MEDS ORDERED: ACETAMINOPHEN 325 MG TABLET/CAPLET (TYLENOL) ONE (14:33)
[2016-10-20] MEDS: ACETAMINOPHEN 325 MG TABLET/CAPLET (TYLENOL) PO PRN ×2 (14:41→19:15)
[2016-10-20] MEDS: inSUlin (REGULAR) HUMAN 1 UNIT/0.01 ML (CHARGE PER UNIT) SC SCH ×2 (17:16→17:17)
[2016-10-21] VITALS (15 sets, daily range): BP systolic 106–155; BP diastolic 71–102
[2016-10-21] MEDS: RT-ALBUTEROL/IPRATROPIUM 3 ML (DUONEB) VIAL INH SCH ×2 (01:51→06:47)
[2016-10-21 03:55] LABS: BASOPHILS # (AUTO) 0.1 10^3/uL (0.0-0.1); BASOPHILS % (AUTO) 0 % (0-10); EOSINOPHILS # (AUTO) 0.9 10^3/uL (0.0-0.3); EOSINOPHILS % (AUTO) 7 % (0-10); LYMPHOCYTES # (AUTO) 1.9 X 10^3 (1.0-4.0); LYMPHOCYTES % (AUTO) 14 % (12-44); MEAN CORPUSCULAR HEMOGLOBIN 30 PG (25-34); MEAN CORPUSCULAR HGB CONC 34 G/DL (32-36); MEAN CORPUSCULAR VOLUME 87 FL (80-99); MEAN PLATELET VOLUME 10.1 FL (7.4-10.4); MONOCYTES # (AUTO) 0.9 X 10^3 (0.0-1.0); MONOCYTES % (AUTO) 7 % (0-12); NEUTROPHILS # (AUTO) 9.1 X 10^3 (1.8-7.8); NEUTROPHILS % (AUTO) 71 % (42-75); PLATELET COUNT 177 10^3/uL (130-400); WHITE BLOOD COUNT 12.8 10^3/uL (4.3-11.0)
[2016-10-21 04:15] LABS: ANION GAP 9 MMOL/L (5-14); BLOOD UREA NITROGEN 2 MG/DL (7-18); BUN/CREATININE RATIO 3; CALCIUM 7.9 MG/DL (8.5-10.1); CARBON DIOXIDE 25 MMOL/L (21-32); CHLORIDE 111 MMOL/L (98-107); CREATININE SERUM 0.74 MG/DL (0.60-1.30); GFR ESTIMATED > 60; GLUCOSE 108 MG/DL (70-105); MAGNESIUM 1.9 MG/DL (1.8-2.4); PHOSPHORUS 2.1 MG/DL (2.3-4.7); POTASSIUM 3.1 MMOL/L (3.6-5.0); SODIUM 145 MMOL/L (135-145)
[2016-10-21] MEDS: MAGNESIUM 1 GM/100 ML IVPB 100 ML IV SCH (05:06)
[2016-10-21] MEDS: inSUlin (REGULAR) HUMAN 1 UNIT/0.01 ML (CHARGE PER UNIT) SC SCH ×2 (05:06)
[2016-10-21] MEDS: POTASSIUM CL 10MEQ/50ML IVPB 50 ML IV SCH ×5 (05:06→07:37)
[2016-10-21] MEDS: D5 1/2 NS 1000 ML IV SOLUTION 1,000 ML IV SCH (05:14)
[2016-10-21] MEDS: PIPERACILLIN/TAZOBACTAM 4.5 GM/NS 100 ML IVPB IV SCH ×2 (05:15)
[2016-10-21] MEDS: DEXMEDETOMIDINE INJECTION 400 MCG in NS (IVPB) 100 ML IV SCH (05:16)
[2016-10-21] MEDS: ENOXAPARIN 40 MG/0.4 ML (LOVENOX) SYR SC SCH (05:16)
--- NOTE | 2016-10-21 07:53 | Diagnostic Imaging Report ---
INDICATION: Cough Portable chest shows normal heart size and vascularity. The lungs are clear. There is no effusion or pneumothorax. There is no acute bony abnormality. IMPRESSION: No acute abnormality is seen. The ET tube and OG tube have been removed since the study from 10/20/16. Dictated by: Dictated on workstation # [id number]
[2016-10-21] MEDS: HALOPERIDOL 5 MG/ML (HALDOL) AMP IV SCH (08:47)
[2016-10-21] MEDS: THIAMINE INJECTION 100 MG, FOLIC ACID INJECTION 1 MG, VITAMIN MULTI INJECTION 10 ML, MA... IV SCH ×5 (08:48)
[2016-10-21] MEDS: PANTOPRAZOLE 40 MG/10 ML (PROTONIX) VIAL IV SCH (08:48)
[2016-10-21 09:30] LABS: BILIRUBIN,URINE NEGATIVE (NEGATIVE); KETONES,URINE NEGATIVE (NEGATIVE); LEUKOCYTE ESTERASE ,URINE 1+ (NEGATIVE); NITRITE,URINE NEGATIVE (NEGATIVE); PH,URINE 8 (5-9); PROTEIN,URINE NEGATIVE (NEGATIVE); UROBILINOGEN,URINE NORMAL (NORMAL)
[2016-10-21 09:50] LABS: SQUAMOUS EPITHELIAL CELL,UR RARE /HPF; WBC,URINE RARE /HPF
--- NOTE | 2016-10-21 10:19 | Progress Note-Hospitalist ---
Subjective HPI/CC On Admission Date Seen by Provider: Oct 21, 2016 Time Seen by Provider: 10:00 CC: Psychotic episode HPI: This is a 31 yoWM pt of [facility] that required intubation in ER due to violent behavior when found down in front yard of house. 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 Beth. Subjective/Events-last exam Mr. Mejia is a little anxious but has not been agitated and was alert and oriented during the interview. He is tearful and requesting inpatient treatment for his chemical dependency and alcohol use disorder. He understands that if he uses meth again he is likely to have another psychotic reaction. He denies chest pain has had a mild nonproductive cough with no chills or fever. He denies shortness of breath. Objective Exam Vital Signs Vital Sign - Last 12Hours 10/18/16 10/18/16 10/18/16 10/18/16 18:08 19:34 20:18 20:45 Temp 98.7 Pulse 179 Resp 24 B/P (MAP) 179/108 Pulse Ox 96 O2 Delivery Mechanical Ventilator O2 Flow Rate 60.00 FiO2 60 Capillary Refill : Less Than 3 Seconds General Appearance: WD/WN, Anxious Respiratory: Chest Non Tender, Lungs Clear, Normal Breath Sounds, No Accessory Muscle Use, No Respiratory Distress Cardiovascular: Regular Rate, Rhythm, No Edema, No Gallop, No JVD, No Murmur, Normal Peripheral Pulses Gastrointestinal: Normal Bowel Sounds, No Organomegaly, No Pulsatile Mass, Non Tender, Soft Results/Procedures Lab Laboratory Tests 10/21/16 03:44 Assessment/Plan Assessment and Plan Assess & Plan/Chief Complaint 1. Methamphetamine abuse with acute psychosis ventilated for patient and societal safety initially now extubated doing well. 2. Aspiration chest clear and x-ray clear will DC Zosyn and transferred to the floor. 3. History of alcohol use disorder patient believes was his last day he exhibits no evidence for significant withdrawal symptoms. He is agreeable to inpatient rehabilitation. We'll consult forensic social worker in the morning to see what is available from an inpatient chemical dependency treatment program which I agree would be in this patient's best interest.. ANDREA NAIR MD Oct 21, 2016 10:19
[2016-10-21] MEDS ORDERED: MULT1TAB69 PO (12:02)
[2016-10-22 03:25] VITALS: BP 129/72
[2016-10-22] MEDS: ENOXAPARIN 40 MG/0.4 ML (LOVENOX) SYR SC SCH (06:37)
[2016-10-22 08:00] VITALS: BP 126/78
--- NOTE | 2016-10-22 09:58 | Discharge Summary ---
Diagnosis/Chief Complaint Date of Admission Oct 18, 2016 at 19:20 Date of Discharge Oct 22, 2016 at 08:57 Admission Diagnosis Admission Diagnosis Severe violent behavior due to methamphetamine use and likely psych disorder requiring intubation Discharge Diagnosis 1. Methamphetamine abuse with acute psychosis ventilated for patient and societal safety initially now extubated doing well. 2. Aspiration chest clear and x-ray clear will DC Zosyn and transferred to the floor. 3. History of alcohol use disorder patient believes was his last day he exhibits no evidence for significant withdrawal symptoms. He was originally agreeable to inpatient rehabilitation and plan was to look for facility but patient decided to leave AMA. Chief Complaint/HPI Chief Complaint/HPI (From ER notes) "To ER per EMS accompanied by [place] [employer] with concerns of substance abuse. Patient was apparently in someone's front yard somewhere here in [place] acting bizarrely believing that A sniper was going to shoot him. When the police arrived he requested that is around him to protect him from the Cipro. He was then loaded into the back of the ambulance where he was psychotic and belligerent and brought here." Discharge Summary-Simple/Stand Procedures Intubation Consultations Discharge Physical Examination Allergies: Coded Allergies: amoxicillin (Verified Allergy, Unknown, rash, 10/21/16) Vitals & I&Os Vital Sign - Last 12Hours Date Time Temp Pulse Resp B/P (MAP) Pulse Ox O2 Delivery O2 Flow Rate FiO2 10/22/16 08:00 96 Room Air 10/22/16 08:00 99.2 94 20 126/78 10/21/16 10:00 3.00 10/20/16 09:11 25 Hospital Course See final discharge diagnosis. Labs Laboratory Tests Test 10/20/16 10:21 10/20/16 12:43 10/20/16 17:14 10/21/16 03:44 Range/Units Lactic Acid Level 1.01 0.50-2.00 MMOL/L Glucometer 101 91 70-110 MG/DL White Blood Count 12.8 H 4.3-11.0 10^3/uL Red Blood Count 4.30 L 4.35-5.85 10^6/uL Hemoglobin 12.8 L 13.3-17.7 G/DL Hematocrit 37 L 40-54 % Mean Corpuscular Volume 87 80-99 FL Mean Corpuscular Hemoglobin 30 25-34 PG Mean Corpuscular Hemoglobin Concent 34 32-36 G/DL Red Cell Distribution Width 14.0 10.0-14.5 % Platelet Count 177 130-400 10^3/uL Mean Platelet Volume 10.1 7.4-10.4 FL Neutrophils (%) (Auto) 71 42-75 % Lymphocytes (%) (Auto) 14 12-44 % Monocytes (%) (Auto) 7 0-12 % Eosinophils (%) (Auto) 7 0-10 % Basophils (%) (Auto) 0 0-10 % Neutrophils # (Auto) 9.1 H 1.8-7.8 X 10^3 Lymphocytes # (Auto) 1.9 1.0-4.0 X 10^3 Monocytes # (Auto) 0.9 0.0-1.0 X 10^3 Eosinophils # (Auto) 0.9 H 0.0-0.3 10^3/uL Basophils # (Auto) 0.1 0.0-0.1 10^3/uL Sodium Level 145 135-145 MMOL/L Potassium Level 3.1 L 3.6-5.0 MMOL/L Chloride Level 111 H 98-107 MMOL/L Carbon Dioxide Level 25 21-32 MMOL/L Anion Gap 9 5-14 MMOL/L Blood Urea Nitrogen 2 L 7-18 MG/DL Creatinine 0.74 0.60-1.30 MG/DL Estimat Glomerular Filtration Rate > 60 BUN/Creatinine Ratio 3 Glucose Level 108 H 70-105 MG/DL Calcium Level 7.9 L 8.5-10.1 MG/DL Phosphorus Level 2.1 L 2.3-4.7 MG/DL Magnesium Level 1.9 1.8-2.4 MG/DL Test 10/21/16 08:40 Range/Units Urine Color YELLOW Urine Clarity CLEAR Urine pH 8 5-9 Urine Specific [place] 1.010 L 1.016-1.022 Urine Protein NEGATIVE NEGATIVE Urine Glucose (UA) NEGATIVE NEGATIVE Urine Ketones NEGATIVE NEGATIVE Urine Nitrite NEGATIVE NEGATIVE Urine Bilirubin NEGATIVE NEGATIVE Urine Urobilinogen NORMAL NORMAL MG/DL Urine Leukocyte Esterase 1+ H NEGATIVE Urine RBC (Auto) NEGATIVE NEGATIVE Urine RBC RARE /HPF Urine WBC RARE /HPF Urine Squamous Epithelial Cells RARE /HPF Urine Crystals NONE /LPF Urine Bacteria NEGATIVE /HPF Urine Casts NONE /LPF Urine Mucus NEGATIVE /LPF Urine Culture Indicated NO Discharge Condition at discharge Left Against Medical Advise Instructions to patient/family Please see electonic discharge instructions given to patient. Discharge Medications Reviewed and agree with Discharge Medication list on patient's Discharge Instruction sheet Clinical Quality Measures DVT/VTE Risk/Contraindication: Risk Factor Score Per Nursin RFS Level Per Nursing on Admit: 1=Low/No VTE PPX Copy Copies To 1: JACQUES HOLGUIN MD, BETHANY N MD Oct 22, 2016 09:58
== END 2016-10-22 08:57 | disposition left against medical advice (07) | DRG 894 ==
LOC: EDUNIT# 18:08 → ER 18:09 → ICU 19:20 → 4TH 10-21 12:10
PROVIDERS: ADMIT Internal Medicine; ATTEND Internal Medicine
PROC: 5A1945Z Respiratory Ventilation, 24-96 Consecutive Hours (ICD-10-PCS; principal; 2016-10-18)
DX: F15.950 Other stimulant use, unspecified with stimulant-induced psychotic disorder with delusions (principal); J69.0 Pneumonitis due to inhalation of food and vomit; F15.951 Other stimulant use, unspecified with stimulant-induced psychotic disorder with hallucinations; E16.2 Hypoglycemia, unspecified; M62.82 Rhabdomyolysis; E87.2 Acidosis; F10.10 Alcohol abuse, uncomplicated; F17.210 Nicotine dependence, cigarettes, uncomplicated; F90.9 Attention-deficit hyperactivity disorder, unspecified type; F32.9 Major depressive disorder, single episode, unspecified; F41.9 Anxiety disorder, unspecified
CPT/HCPCS: 31500; 36415; 51702; 71010; 80048; 80053; 80306; 80320; 80329; 81000; 82550; 82805; 82962; 83605; 83735; 83874; 84100; 84132; 85007; 85025; 85027; 87040; 87070; 87081; 87088; 87205; 93005; 93041; 94002; 94003; 94640; 94664; 94799; 96361; 96372; 96374

== ENCOUNTER 2017-03-01 03:13 | Inpatient (IN) | payer SELFPAY ==
[~2017-03-01] VITALS: Ht 177.8 cm; Wt 93.7 kg
[2017-03-01] VITALS (26 sets, daily range): BP systolic 90–133; BP diastolic 42–97
[~2017-03-01 03:13] MED LIST changes: +MULT1TAB69 PO
[2017-03-01] MEDS ORDERED: ZIPRASIDONE 20 MG INJ (GEODON) VIAL IM ONE ×3 (03:21→03:45)
[2017-03-01 03:30] LABS: BASOPHILS % (AUTO) 0 % (0-10); EOSINOPHILS % (AUTO) 0 % (0-10); HEMATOCRIT 37 % (40-54); HEMOGLOBIN 14.8 G/DL (13.3-17.7); LYMPHOCYTES # (AUTO) 1.1 X 10^3 (1.0-4.0); LYMPHOCYTES % (AUTO) 5 % (12-44); MEAN CORPUSCULAR HEMOGLOBIN 29 PG (25-34); MEAN CORPUSCULAR HGB CONC 40 G/DL (32-36); MEAN CORPUSCULAR VOLUME 74 FL (80-99); MONOCYTES # (AUTO) 1.7 X 10^3 (0.0-1.0); MONOCYTES % (AUTO) 7 % (0-12); NEUTROPHILS # (AUTO) 21.8 X 10^3 (1.8-7.8); NEUTROPHILS % (AUTO) 89 % (42-75); PLATELET COUNT 328 10^3/uL (130-400); RED BLOOD COUNT 5.05 10^6/uL (4.35-5.85); RED CELL DISTRIBUTION WIDTH 13.5 % (10.0-14.5); WHITE BLOOD COUNT 24.7 10^3/uL (4.3-11.0)
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
[2017-03-01 03:46] LABS: BAND NEUTROPHILS 8 %; BASOPHILS % (MANUAL) 0 %; EOSINOPHILS % (MANUAL) 0 %; LYMPHOCYTES % (MANUAL) 6 %; MONOCYTES % (MANUAL) 4 %; NEUTROPHILS % (MANUAL) 82 %; RBC MORPH NORMAL
[2017-03-01 03:50] LABS: ACETAMINOPHEN < 10 UG/ML (10-30); ALANINE AMINOTRANSFERASE 33 U/L (0-55); ALBUMIN 4.6 GM/DL (3.2-4.5); ALKALINE PHOSPHATASE 80 U/L (40-136); BILIRUBIN,TOTAL 1.4 MG/DL (0.1-1.0); BUN/CREATININE RATIO 17; CALCIUM 9.4 MG/DL (8.5-10.1); CARBON DIOXIDE 15 MMOL/L (21-32); CHLORIDE 100 MMOL/L (98-107); GFR ESTIMATED > 60; GLUCOSE 155 MG/DL (70-105); POTASSIUM 3.9 MMOL/L (3.6-5.0); SALICYLATE < 5.0 MG/DL (5.0-20.0); SODIUM 141 MMOL/L (135-145); TOTAL PROTEIN 7.5 GM/DL (6.4-8.2)
[2017-03-01] MEDS ORDERED: LACTATED RINGERS 1,000 ML IV ONE (03:56)
[2017-03-01] MEDS ORDERED: PROPOFOL DRIP (ICU) 100 ML IV ONE (04:30)
[2017-03-01] MEDS: PROPOFOL INJECTION 50 ML IV SCH ×3 (04:35→05:23)
[2017-03-01 04:47] LABS: BILIRUBIN,URINE NEGATIVE (NEGATIVE); COLOR,URINE YELLOW; GLUCOSE, URINE (UA) NEGATIVE (NEGATIVE); KETONES,URINE 3+ (NEGATIVE); LEUKOCYTE ESTERASE ,URINE 1+ (NEGATIVE); NITRITE,URINE NEGATIVE (NEGATIVE); PH,URINE 6 (5-9); PROTEIN,URINE 3+ (NEGATIVE); UROBILINOGEN,URINE 4 MG/DL (NORMAL)
[2017-03-01 04:55] LABS: BACTERIA,URINE TRACE /HPF; CLARITY,URINE SLIGHTLY CLOUDY; RBC,URINE 0-2 /HPF; WBC,URINE 0-2 /HPF
[2017-03-01 04:56] LABS: AMORPHOUS SEDIMENT,UR FEW AMOR URATES /LPF; HYALINE CASTS, URINE 0-2 /LPF; URINE OTHER MOD SPERM /HPF
[2017-03-01 05:02] LABS: AMPHETAMINE SCREEN, URINE POSITIVE (NEGATIVE); BARBITURATE SCREEN URINE NEGATIVE (NEGATIVE); BENZODIAZEPINES SCREEN URINE NEGATIVE (NEGATIVE); CANNABINOID SCREEN, URINE POSITIVE (NEGATIVE); COCAINE SCREEN URINE NEGATIVE (NEGATIVE); METHADONE STAT NEGATIVE (NEGATIVE); METHAMPHETAMINE SCREEN URINE S POSITIVE (NEGATIVE); OPIATE SCREEN URINE NEGATIVE (NEGATIVE); OXYCODONE STAT NEGATIVE (NEGATIVE); PROPOXYPHENE STAT NEGATIVE (NEGATIVE); TRICYCLIC ANTIDEPRESSANTS SCRE NEGATIVE (NEGATIVE)
[2017-03-01] MEDS ORDERED: MIDAZOLAM 5 MG/5 ML (VERSED) VIAL IVP ONE (05:15)
[2017-03-01 05:35] LABS: ABG BASE EXCESS -2.2 MMOL/L (-2.5-2.5); ABG OXYGEN SATURATION 100 % (94-100); ABG PCO2 42 MMHG (35-45); ABG PH 7.35 (7.37-7.43); ABG TCO2 23.9 MMOL/L (21.0-31.0)
[2017-03-01 05:36] LABS: ALLENS TEST YES-POS; INSPIRED O2 100%; VENTILATOR YES
[2017-03-01 05:40] LABS: ABG PO2 459 MMHG (79-93)
[2017-03-01] MEDS ORDERED: SUCCINYLCHOLINE INJ 100 MG/5 ML SYR INJ ONE (06:00)
[2017-03-01] MEDS ORDERED: MIDAZOLAM 5 MG/5 ML (VERSED) VIAL IV ONE (06:00)
[2017-03-01] MEDS ORDERED: ETOMIDATE IV SOLN 20 MG/10 ML VIAL IV ONE (06:00)
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
[2017-03-01] MEDS: NS IV 1000 ML 1,000 ML IV SCH ×6 (06:17→21:59)
[2017-03-01] MEDS ORDERED: morphine INJ 4 MG/ML 1 ML (VIAL/SYRINGE) IVP PRN (06:30)
[2017-03-01 06:41] LABS: BASOPHILS % (AUTO) 0 % (0-10); EOSINOPHILS % (AUTO) 0 % (0-10); HEMATOCRIT 35 % (40-54); HEMOGLOBIN 13.8 G/DL (13.3-17.7); LYMPHOCYTES % (AUTO) 6 % (12-44); MEAN CORPUSCULAR HEMOGLOBIN 30 PG (25-34); MEAN CORPUSCULAR HGB CONC 40 G/DL (32-36); MEAN CORPUSCULAR VOLUME 75 FL (80-99); MEAN PLATELET VOLUME 9.4 FL (7.4-10.4); MONOCYTES # (AUTO) 1.3 X 10^3 (0.0-1.0); MONOCYTES % (AUTO) 7 % (0-12); NEUTROPHILS # (AUTO) 15.2 X 10^3 (1.8-7.8); NEUTROPHILS % (AUTO) 87 % (42-75); PLATELET COUNT 232 10^3/uL (130-400); RED BLOOD COUNT 4.62 10^6/uL (4.35-5.85); RED CELL DISTRIBUTION WIDTH 13.3 % (10.0-14.5); WHITE BLOOD COUNT 17.5 10^3/uL (4.3-11.0)
[2017-03-01] MEDS ORDERED: CATHETER FLUSH 10 ML SYR IV PRN (06:45)
[2017-03-01 06:54] LABS: BUN/CREATININE RATIO 24; CALCIUM 8.6 MG/DL (8.5-10.1); CARBON DIOXIDE 20 MMOL/L (21-32); CHLORIDE 103 MMOL/L (98-107); CREATININE SERUM 0.88 MG/DL (0.60-1.30); GFR ESTIMATED > 60; GLUCOSE 102 MG/DL (70-105); MAGNESIUM 2.5 MG/DL (1.8-2.4); PHOSPHORUS 3.1 MG/DL (2.3-4.7); POTASSIUM 3.5 MMOL/L (3.6-5.0); SODIUM 140 MMOL/L (135-145)
[2017-03-01] MEDS ORDERED: ONDANSETRON 4 MG/2 ML (SDV) Z0FRAN IV PRN (07:00)
[2017-03-01 07:07] LABS: ALANINE AMINOTRANSFERASE 30 U/L (0-55); ALBUMIN 4.1 GM/DL (3.2-4.5); ALKALINE PHOSPHATASE 67 U/L (40-136); BILIRUBIN,TOTAL 1.6 MG/DL (0.1-1.0); BUN/CREATININE RATIO 24; CALCIUM 8.6 MG/DL (8.5-10.1); CARBON DIOXIDE 20 MMOL/L (21-32); CHLORIDE 104 MMOL/L (98-107); CREATININE SERUM 0.88 MG/DL (0.60-1.30); GFR ESTIMATED > 60; GLUCOSE 102 MG/DL (70-105); POTASSIUM 3.5 MMOL/L (3.6-5.0); SODIUM 140 MMOL/L (135-145); TOTAL PROTEIN 6.6 GM/DL (6.4-8.2)
--- NOTE | 2017-03-01 07:18 | Diagnostic Imaging Report ---
INDICATION: Respiratory distress. FINDINGS: ET tube mid trachea, OG in the stomach. No focal consolidation. IMPRESSION: Support apparatus in good alignment. Dictated by: Dictated on workstation # [id number]
[2017-03-01] MEDS: HALOPERIDOL 5 MG/ML (HALDOL) AMP IV PRN (07:21)
[2017-03-01] MEDS: LORazepam INJ 2 MG/ML (ATIVAN) VIAL IV PRN ×2 (07:21→12:29)
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
[2017-03-01 08:10] LABS: ABG BASE EXCESS -3.7 MMOL/L (-2.5-2.5); ABG OXYGEN SATURATION 96 % (94-100); ABG PCO2 46 MMHG (35-45); ABG PO2 79 MMHG (79-93); ABG TCO2 23.1 MMOL/L (21.0-31.0)
[2017-03-01 08:11] LABS: ALLENS TEST YES-POS; INSPIRED O2 30; PATIENT TEMP 98.8; VENTILATOR YES
[2017-03-01] MEDS ORDERED: INFLUENZA TRIvalent 2017-2018 0.5 ML/45 MCG SYR IM ONE (08:15)
[2017-03-01] MEDS: FAMOTIDINE 20MG/2ML IV (PEPCID) IVP SCH (08:48)
[2017-03-01] MEDS: HALOPERIDOL 5 MG/ML (HALDOL) AMP IV SCH ×2 (10:14→20:22)
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
[2017-03-01] MEDS ORDERED: ceFAZolin INJECTION 1,000 MG in NS (IVPB) 50 ML IV ONE (12:45)
[2017-03-01] MEDS ORDERED: TETANUS,DIPTH,PERTUSS P/F (BOOSTRIX) 0.5 ML VIAL IM ONE (13:00)
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
[2017-03-01] MEDS ORDERED: NS (IVPB) 50 ML ONE (15:33)
[2017-03-01] MEDS ORDERED: ceFAZolin 1,000 MG (ANCEF) VIAL ONE (15:33)
[2017-03-01] MEDS ORDERED: ACETAMINOPHEN 650 MG SUPP (TYLENOL) PR PRN (17:00)
[2017-03-01] MEDS ORDERED: PIPERACILLIN SODIUM/TAZOBACTAM 4.5 GM in NS (IVPB) 100 ML IV SCH (17:00)
[2017-03-01] MEDS: LEVOFLOXACIN 750 MG/150 ML IV 150 ML IV SCH (18:57)
[2017-03-01] MEDS: OSELTAMIVIR 6 MG/ML (TAMIFLU) 60 ML BOT PO SCH (20:22)
[2017-03-02] VITALS (29 sets, daily range): BP systolic 96–164; BP diastolic 56–95
[2017-03-02 04:10] LABS: ABG BASE EXCESS -0.1 MMOL/L (-2.5-2.5); ABG OXYGEN SATURATION 94 % (94-100); ABG PCO2 38 MMHG (35-45); ABG PH 7.41 (7.37-7.43); ABG PO2 60 MMHG (79-93); ABG TCO2 25.1 MMOL/L (21.0-31.0); ALLENS TEST YES-POS; INSPIRED O2 21% FIO2
[2017-03-02 04:11] LABS: PATIENT TEMP 98.6; VENTILATOR YES
[2017-03-02] MEDS: HALOPERIDOL 5 MG/ML (HALDOL) AMP IV PRN (04:49)
[2017-03-02] MEDS: NS IV 1000 ML 1,000 ML IV SCH ×3 (04:49→18:07)
[2017-03-02 06:04] LABS: BASOPHILS # (AUTO) 0.1 10^3/uL (0.0-0.1); BASOPHILS % (AUTO) 0 % (0-10); EOSINOPHILS # (AUTO) 0.2 10^3/uL (0.0-0.3); EOSINOPHILS % (AUTO) 1 % (0-10); HEMATOCRIT 33 % (40-54); HEMOGLOBIN 12.4 G/DL (13.3-17.7); LYMPHOCYTES # (AUTO) 2.4 X 10^3 (1.0-4.0); LYMPHOCYTES % (AUTO) 17 % (12-44); MEAN CORPUSCULAR HEMOGLOBIN 30 PG (25-34); MEAN CORPUSCULAR HGB CONC 37 G/DL (32-36); MEAN CORPUSCULAR VOLUME 80 FL (80-99); MEAN PLATELET VOLUME 10.2 FL (7.4-10.4); MONOCYTES # (AUTO) 0.8 X 10^3 (0.0-1.0); MONOCYTES % (AUTO) 6 % (0-12); NEUTROPHILS # (AUTO) 11.1 X 10^3 (1.8-7.8); NEUTROPHILS % (AUTO) 77 % (42-75); PLATELET COUNT 194 10^3/uL (130-400); RED CELL DISTRIBUTION WIDTH 13.6 % (10.0-14.5); WHITE BLOOD COUNT 14.5 10^3/uL (4.3-11.0)
[2017-03-02 06:33] LABS: BUN/CREATININE RATIO 12; CALCIUM 8.1 MG/DL (8.5-10.1); CARBON DIOXIDE 24 MMOL/L (21-32); CHLORIDE 107 MMOL/L (98-107); CREATININE SERUM 0.75 MG/DL (0.60-1.30); GFR ESTIMATED > 60; GLUCOSE 83 MG/DL (70-105); MAGNESIUM 2.1 MG/DL (1.8-2.4); PHOSPHORUS 1.9 MG/DL (2.3-4.7); POTASSIUM 3.2 MMOL/L (3.6-5.0); SODIUM 144 MMOL/L (135-145)
[2017-03-02] MEDS: FAMOTIDINE 20MG/2ML IV (PEPCID) IVP SCH (08:41)
[2017-03-02] MEDS: HALOPERIDOL 5 MG/ML (HALDOL) AMP IV SCH ×2 (08:41→20:31)
[2017-03-02] MEDS: LEVOFLOXACIN 750 MG/150 ML IV 150 ML IV SCH (08:41)
[2017-03-02] MEDS: OSELTAMIVIR 6 MG/ML (TAMIFLU) 60 ML BOT PO SCH ×2 (08:41→20:31)
[2017-03-02] MEDS: POTASSIUM CL 10MEQ/50ML IVPB 50 ML IV SCH ×4 (08:41→11:07)
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
[2017-03-02] MEDS ORDERED: NS (IVPB) 50 ML ONE (09:27)
[2017-03-02] MEDS ORDERED: DEXMEDETOMIDINE INJECTION 200 MCG in NS (IVPB) 50 ML IV SCH (09:30)
--- NOTE | 2017-03-02 10:18 | Diagnostic Imaging Report ---
INDICATION: Shortness of breath. Comparison made with prior examination from 03/01/2017. FINDINGS: Heart size is normal. ET and NG tubes are in satisfactory position. Lungs are clear. There is some right basilar atelectasis and/or pneumonitis. There is no pneumothorax. Mediastinum is unremarkable. IMPRESSION: Right basilar atelectasis and/or pneumonitis. No other acute cardiopulmonary abnormality. Dictated by: Dictated on workstation # [id number]
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
[2017-03-03] VITALS (10 sets, daily range): BP systolic 95–162; BP diastolic 62–93
[2017-03-03] MEDS: NS IV 1000 ML 1,000 ML IV SCH ×2 (01:08→07:51)
[2017-03-03 05:55] LABS: BASOPHILS # (AUTO) 0.1 10^3/uL (0.0-0.1); BASOPHILS % (AUTO) 1 % (0-10); EOSINOPHILS # (AUTO) 0.8 10^3/uL (0.0-0.3); EOSINOPHILS % (AUTO) 7 % (0-10); HEMATOCRIT 32 % (40-54); HEMOGLOBIN 11.4 G/DL (13.3-17.7); LYMPHOCYTES # (AUTO) 2.5 X 10^3 (1.0-4.0); LYMPHOCYTES % (AUTO) 23 % (12-44); MEAN CORPUSCULAR HEMOGLOBIN 30 PG (25-34); MEAN CORPUSCULAR HGB CONC 35 G/DL (32-36); MEAN CORPUSCULAR VOLUME 85 FL (80-99); MEAN PLATELET VOLUME 10.6 FL (7.4-10.4); MONOCYTES # (AUTO) 0.7 X 10^3 (0.0-1.0); MONOCYTES % (AUTO) 6 % (0-12); NEUTROPHILS % (AUTO) 64 % (42-75); PLATELET COUNT 201 10^3/uL (130-400); RED CELL DISTRIBUTION WIDTH 13.6 % (10.0-14.5)
[2017-03-03] MEDS ORDERED: MAGNESIUM 1 GM/100 ML IVPB 100 ML IV SCH (06:00)
[2017-03-03] MEDS ORDERED: POTASSIUM CL 10MEQ/50ML IVPB 50 ML IV SCH (06:00)
[2017-03-03] MEDS ORDERED: KCL 20 MEQ TAB (K-DUR) PO SCH (06:00)
[2017-03-03 06:12] LABS: BUN/CREATININE RATIO 8; CARBON DIOXIDE 24 MMOL/L (21-32); CHLORIDE 108 MMOL/L (98-107); CREATININE SERUM 0.64 MG/DL (0.60-1.30); GFR ESTIMATED > 60; GLUCOSE 79 MG/DL (70-105); MAGNESIUM 1.9 MG/DL (1.8-2.4); PHOSPHORUS 2.2 MG/DL (2.3-4.7); POTASSIUM 3.3 MMOL/L (3.6-5.0); SODIUM 143 MMOL/L (135-145)
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
[2017-03-03] MEDS: LEVOFLOXACIN 750 MG/150 ML IV 150 ML IV SCH (07:52)
[2017-03-03] MEDS ORDERED: KCL 20 MEQ TAB (K-DUR) PO ONE ×2 (08:00→10:00)
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
--- NOTE | 2017-03-03 08:49 | Diagnostic Imaging Report ---
INDICATION: Extubation. Comparison made with prior examination 03/02/2017. FINDINGS: Heart size is normal. The ET and NG tubes have been removed. There is no pleural effusion, pneumothorax or pneumonia. There appears to be some minimal right basilar subsegmental atelectasis and/or pneumonitis. IMPRESSION: Stable appearance of the chest following extubation with some minimal right basilar subsegmental atelectasis and/or pneumonitis. Dictated by: Dictated on workstation # [id number]
[2017-03-03] MEDS: FAMOTIDINE 20MG/2ML IV (PEPCID) IVP SCH (09:16)
[2017-03-03] MEDS: HALOPERIDOL 5 MG/ML (HALDOL) AMP IV SCH (09:16)
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
[2017-03-04 13:38] LABS: HEPATITIS C ANTIBODY C Non-Reactive (Non-Reactive)
== END 2017-03-03 11:15 | disposition left against medical advice (07) | DRG 551 ==
LOC: EDUNIT# 03:13 → ER 03:15 → ICU 05:00
PROVIDERS: ADMIT Surgery; ATTEND Surgery
DX: S12.691A Other nondisplaced fracture of seventh cervical vertebra, initial encounter for closed fracture (principal); J13 Pneumonia due to Streptococcus pneumoniae; E87.2 Acidosis; F15.259 Other stimulant dependence with stimulant-induced psychotic disorder, unspecified; S00.83XA Contusion of other part of head, initial encounter; S60.511A Abrasion of right hand, initial encounter; S60.512A Abrasion of left hand, initial encounter; S50.311A Abrasion of right elbow, initial encounter; S50.312A Abrasion of left elbow, initial encounter; G40.909 Epilepsy, unspecified, not intractable, without status epilepticus; F90.9 Attention-deficit hyperactivity disorder, unspecified type; F41.9 Anxiety disorder, unspecified; F32.9 Major depressive disorder, single episode, unspecified; E86.0 Dehydration; D72.829 Elevated white blood cell count, unspecified; F12.259 Cannabis dependence with psychotic disorder, unspecified; F10.20 Alcohol dependence, uncomplicated; E78.5 Hyperlipidemia, unspecified; E87.6 Hypokalemia; R79.89 Other specified abnormal findings of blood chemistry; V48.0XXA Car driver injured in noncollision transport accident in nontraffic accident, initial encounter; Y92.410 Unspecified street and highway as the place of occurrence of the external cause; Z23 Encounter for immunization
CPT/HCPCS: 36415; 70450; 71045; 71250; 72125; 74176; 80048; 80053; 80074; 80306; 80320; 80329; 81000; 82805; 83605; 83735; 84100; 85007; 85025; 85027; 87040; 87070; 87077; 87081; 87205; 87804; 90715; 93005; 93041; 94002; 94003; 94799

== ENCOUNTER 2017-07-23 20:40 | Emergency (ER) | payer SELFPAY ==
[~2017-07-23] VITALS: Ht 180.3 cm; Wt 88.5 kg
[2017-07-23] MEDS ORDERED: RX-NAPROXEN (NAPROSYN) 250 MG TAB PPK#4 PO STA (20:46)
[2017-07-23] MEDS ORDERED: NAPR-1071 PO (20:53)
[2017-07-23] MEDS ORDERED: CEPH-507 PO (20:53)
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
[2017-07-23] MEDS ORDERED: CEPHALEXIN 250 MG (KEFLEX) CAP PO ONE (21:00)
[2017-07-23] MEDS ORDERED: LIDOCAINE 2% VISCOUS 15 ML UDC PO ONE (21:00)
[2017-07-23] MEDS ORDERED: KETOROLAC 60 MG/2 ML VIAL IM ONE (21:00)
[2017-07-23 21:15] VITALS: BP 135/94
== END 2017-07-23 21:15 | disposition home or self-care (01) ==
LOC: EDUNIT# 20:40 → ER 20:41
DX: K08.89 Other specified disorders of teeth and supporting structures (principal); J45.909 Unspecified asthma, uncomplicated; G40.909 Epilepsy, unspecified, not intractable, without status epilepticus; F90.9 Attention-deficit hyperactivity disorder, unspecified type; F41.9 Anxiety disorder, unspecified; F32.9 Major depressive disorder, single episode, unspecified; Z88.1 Allergy status to other antibiotic agents; Z77.22 Contact with and (suspected) exposure to environmental tobacco smoke (acute) (chronic); Z91.5 Personal history of self-harm; Z90.89 Acquired absence of other organs
CPT/HCPCS: 96372; 99284

== ENCOUNTER 2018-01-20 16:57 | Emergency (ER) | payer SELFPAY ==
[~2018-01-20] VITALS: Ht 180.3 cm; Wt 90.7 kg
[~2018-01-20 16:57] MED LIST changes: +CEPH-507 PO; +NAPR-1071 PO
--- NOTE | 2018-01-20 17:13 | ED General ---
General Stated Complaint: DIZZINESS/"WANTS BLOOD CHECKED FOR INFECTION" Source of Information: Patient Exam Limitations: No Limitations History of Present Illness Date Seen by Provider: Jan 20, 2018 Time Seen by Provider: 17:13 Initial Comments To ER with reports of not feeling well and he suspects that he may have an infection. he denies fevers that he does report some chills and general malaise. This began 2-3 days ago while he was "rolling in the hay" with a female referring to having sex with her in the hay. He states "then I noticed a stench coming from her" and now he suspects he may have contracted an STD from her. He does report urinary urgency but no burning on urination or frequency. He is homeless. He uses alcohol daily most recently taking a shot of whiskey yesterday and IV methamphetamine yesterday. Timing/Duration: 1-2 Days Severity: Moderate Associated Systoms: No Nausea/Vomiting Allergies and Home Medications Allergies Coded Allergies: amoxicillin (Verified Allergy, Unknown, rash, 10/23/17) Home Medications No Active Prescriptions or Reported Meds Patient Home Medication List Home Medication List Reviewed: Yes Review of Systems Review of Systems Constitutional: see HPI, chills; No fever; malaise EENTM: see HPI Respiratory: see HPI; No cough, No short of breath Cardiovascular: no symptoms reported Genitourinary: see HPI Musculoskeletal: no symptoms reported Skin: no symptoms reported Psychiatric/Neurological: No Symptoms Reported Hematologic/Lymphatic: No Symptoms Reported Immunological/Allergic: no symptoms reported Past Esxmaxy-Wgfisc-Lfngty Hx Patient Social History Alcohol Beverage of Choice: Whiskey Drug of Choice: +IV METH, COCAINE, THC, MUSHROOMS, XANAX, OPIATES/HYDROCODONE Type Used: Cigarettes 2nd Hand Smoke Exposure: Yes Recent Foreign Travel: No Contact w/Someone Who Travel: No Recent Hopitalizations: No Immunizations Up To Date Tetanus Booster (TDap): Less than 5yrs Seasonal Allergies Seasonal Allergies: No Past Medical History Surgeries: Yes Abdominal, Eye Surgery, Tonsillectomy Respiratory: No Asthma Currently Using CPAP: No Currently Using BIPAP: No Cardiac: No Neurological: Yes Seizure Disorder Reproductive Disorders: No Sexually Transmitted Disease: No HIV/AIDS: No Genitourinary: No Gastrointestinal: No Musculoskeletal: No Endocrine: No HEENT: No Cancer: No Psychosocial: Yes (POLYSUBSTANCE ABUSE) Anxiety Integumentary: No Blood Disorders: No Adverse Reaction/Blood Tranf: No Physical Exam Vital Signs Vital Signs - First Documented 01/20/18 17:05 Temp 96.5 Pulse 98 Resp 17 B/P (MAP) 146/80 (102) Pulse Ox 100 O2 Delivery Room Air Capillary Refill : Height, Weight, BMI Height: 5'11.00" Weight: 168lbs. 12.8oz. 76.953499oz; 23.5 BMI Method:Stated General Appearance: No Apparent Distress, WD/WN, Anxious (alert pleasant, very open and upfront about his drug use) Eyes: Bilateral Eye Normal Inspection, Bilateral Eye PERRL, Bilateral Eye EOMI HEENT: PERRL/EOMI, TMs Normal Neck: Full Range of Motion, Normal Inspection Respiratory: No Accessory Muscle Use, No Respiratory Distress Cardiovascular: Regular Rate, Rhythm, No Murmur; No Diastolic Murmur, No Systolic Murmur Gastrointestinal: Non Tender, Soft Extremity: Normal Capillary Refill, Normal Inspection Neurologic/Psychiatric: Alert, Oriented x3 Skin: Normal Color, Warm/Dry Procedures/Interventions Date of ETT Placement: Mar 01, 2017 Time of ETT Placement: 427 Progress/Results/Core Measures Suspected Sepsis SIRS Temperature: Pulse: Respiratory Rate: Laboratory Tests 01/20/18 17:35: White Blood Count 9.1 Blood Pressure / Mean: Laboratory Tests 01/20/18 17:35: Creatinine 0.80, Platelet Count 318, Total Bilirubin 0.4 Results/Orders Lab Results Laboratory Tests Test 01/20/18 17:35 01/20/18 18:30 Range/Units White Blood Count 9.1 4.3-11.0 10^3/uL Red Blood Count 4.88 4.35-5.85 10^6/uL Hemoglobin 14.8 13.3-17.7 G/DL Hematocrit 43 40-54 % Mean Corpuscular Volume 88 80-99 FL Mean Corpuscular Hemoglobin 30 25-34 PG Mean Corpuscular Hemoglobin Concent 34 32-36 G/DL Red Cell Distribution Width 14.1 10.0-14.5 % Platelet Count 318 130-400 10^3/uL Mean Platelet Volume 9.4 7.4-10.4 FL Neutrophils (%) (Auto) 53 42-75 % Lymphocytes (%) (Auto) 30 12-44 % Monocytes (%) (Auto) 8 0-12 % Eosinophils (%) (Auto) 8 0-10 % Basophils (%) (Auto) 1 0-10 % Neutrophils # (Auto) 4.9 1.8-7.8 X 10^3 Lymphocytes # (Auto) 2.7 1.0-4.0 X 10^3 Monocytes # (Auto) 0.8 0.0-1.0 X 10^3 Eosinophils # (Auto) 0.7 H 0.0-0.3 10^3/uL Basophils # (Auto) 0.1 0.0-0.1 10^3/uL Sodium Level 141 135-145 MMOL/L Potassium Level 3.9 3.6-5.0 MMOL/L Chloride Level 107 98-107 MMOL/L Carbon Dioxide Level 21 21-32 MMOL/L Anion Gap 13 5-14 MMOL/L Blood Urea Nitrogen 21 H 7-18 MG/DL Creatinine 0.80 0.60-1.30 MG/DL Estimat Glomerular Filtration Rate > 60 BUN/Creatinine Ratio 26 Glucose Level 108 H 70-105 MG/DL Calcium Level 8.9 8.5-10.1 MG/DL Corrected Calcium 8.7 8.5-10.1 MG/DL Total Bilirubin 0.4 0.1-1.0 MG/DL Aspartate Amino Transf (AST/SGOT) 22 5-34 U/L Alanine Aminotransferase (ALT/SGPT) 28 0-55 U/L Alkaline Phosphatase 57 40-136 U/L Total Protein 7.1 6.4-8.2 GM/DL Albumin 4.2 3.2-4.5 GM/DL My Orders Orders - JANUSZ YEH APRN Cbc With Automated Diff (01/20/18 17:08) Comprehensive Metabolic Panel (01/20/18 17:08) Ua Culture If Indicated (01/20/18 17:11) Chlamydia Trachomatis Urine (01/20/18 17:11) Neis Adarsh Dna Urine Test (01/20/18 17:11) Ceftriaxone For Im Use (Rocephin For Im (01/20/18 17:15) Azithromycin Tablet (Zithromax Tablet) (01/21/18 09:00) Blood Culture (01/20/18 17:13) Vital Signs/I&O 01/20/18 17:05 Temp 96.5 Pulse 98 Resp 17 B/P (MAP) 146/80 (102) Pulse Ox 100 O2 Delivery Room Air Capillary Refill : Departure Impression Primary Impression: General medical examination Additional Impression: Concern about STD in male without diagnosis Disposition: 01 HOME, SELF-CARE Condition: Stable Departure-Patient Inst. Decision time for Depature: 18:55 Referrals: [facility] (PCP/Family) Primary Care Physician Patient Instructions: General (DC) Add. Discharge Instructions: 1. Follow-up with your doctor 2. Return to ER for any concerns Scripts No Active Prescriptions or Reported Meds JANUSZ YEH [employer] SPECIALIST Jan 20, 2018 17:13
[2018-01-20] MEDS ORDERED: cefTRIAXone 1,000 MG/2.86 ml vial (IM ONLY) IM SCH (17:15)
[2018-01-20 17:50] LABS: BASOPHILS # (AUTO) 0.1 10^3/uL (0.0-0.1); BASOPHILS % (AUTO) 1 % (0-10); EOSINOPHILS # (AUTO) 0.7 10^3/uL (0.0-0.3); EOSINOPHILS % (AUTO) 8 % (0-10); HEMATOCRIT 43 % (40-54); HEMOGLOBIN 14.8 G/DL (13.3-17.7); LYMPHOCYTES # (AUTO) 2.7 X 10^3 (1.0-4.0); LYMPHOCYTES % (AUTO) 30 % (12-44); MEAN CORPUSCULAR HEMOGLOBIN 30 PG (25-34); MEAN CORPUSCULAR HGB CONC 34 G/DL (32-36); MEAN CORPUSCULAR VOLUME 88 FL (80-99); MEAN PLATELET VOLUME 9.4 FL (7.4-10.4); MONOCYTES # (AUTO) 0.8 X 10^3 (0.0-1.0); MONOCYTES % (AUTO) 8 % (0-12); NEUTROPHILS # (AUTO) 4.9 X 10^3 (1.8-7.8); NEUTROPHILS % (AUTO) 53 % (42-75); PLATELET COUNT 318 10^3/uL (130-400); RED BLOOD COUNT 4.88 10^6/uL (4.35-5.85); RED CELL DISTRIBUTION WIDTH 14.1 % (10.0-14.5); WHITE BLOOD COUNT 9.1 10^3/uL (4.3-11.0)
[2018-01-20 18:05] LABS: ALANINE AMINOTRANSFERASE 28 U/L (0-55); ALBUMIN 4.2 GM/DL (3.2-4.5); ALKALINE PHOSPHATASE 57 U/L (40-136); BILIRUBIN,TOTAL 0.4 MG/DL (0.1-1.0); BUN/CREATININE RATIO 26; CALCIUM 8.9 MG/DL (8.5-10.1); CARBON DIOXIDE 21 MMOL/L (21-32); CHLORIDE 107 MMOL/L (98-107); GFR ESTIMATED > 60; GLUCOSE 108 MG/DL (70-105); POTASSIUM 3.9 MMOL/L (3.6-5.0); SODIUM 141 MMOL/L (135-145); TOTAL PROTEIN 7.1 GM/DL (6.4-8.2)
[2018-01-20 18:38] LABS: BILIRUBIN,URINE NEGATIVE (NEGATIVE); CLARITY,URINE CLEAR; COLOR,URINE YELLOW; GLUCOSE, URINE (UA) NEGATIVE (NEGATIVE); KETONES,URINE NEGATIVE (NEGATIVE); LEUKOCYTE ESTERASE ,URINE NEGATIVE (NEGATIVE); NITRITE,URINE NEGATIVE (NEGATIVE); PH,URINE 6.5 (5-9); PROTEIN,URINE NEGATIVE (NEGATIVE); UROBILINOGEN,URINE 1 MG/DL (NORMAL)
[2018-01-20 18:54] LABS: BACTERIA,URINE NEGATIVE /HPF; WBC,URINE 0-2 /HPF
[2018-01-20] MEDS ORDERED: AZITHROMYCIN 250 MG TAB (ZITHROMAX) PO ONE (19:18)
[2018-01-20] MEDS: AZITHROMYCIN 250 MG TAB (ZITHROMAX) PO SCH ×2 (19:23→19:25)
[2018-01-20] MEDS ORDERED: cefTRIAXone FOR IV USE 1,000 MG in NS (IVPB) 50 ML IV ONE (19:30)
[2018-01-20 19:33] VITALS: BP 129/80
== END 2018-01-20 19:35 | disposition home or self-care (01) ==
LOC: EDUNIT# 16:57 → ER 16:58
DX: F10.10 Alcohol abuse, uncomplicated (principal); J45.909 Unspecified asthma, uncomplicated; R53.81 Other malaise; R68.83 Chills (without fever); G40.909 Epilepsy, unspecified, not intractable, without status epilepticus; F41.9 Anxiety disorder, unspecified; F15.10 Other stimulant abuse, uncomplicated; F14.10 Cocaine abuse, uncomplicated; F11.10 Opioid abuse, uncomplicated; Z20.2 Contact with and (suspected) exposure to infections with a predominantly sexual mode of transmission; Z77.22 Contact with and (suspected) exposure to environmental tobacco smoke (acute) (chronic); Z90.89 Acquired absence of other organs; Z88.0 Allergy status to penicillin
CPT/HCPCS: 36415; 80053; 81000; 85025; 87040; 87491; 87591

== ENCOUNTER 2018-07-08 04:55 | Emergency (ER) | payer SELFPAY ==
[~2018-07-08] VITALS: Ht 180.3 cm; Wt 90.7 kg
[2018-07-08] MEDS ORDERED: CLINDAMYCIN 150 MG (CLEOCIN) CAP PO ONE (05:30)
[2018-07-08] MEDS ORDERED: KETOROLAC 30 MG/ML VIAL IM ONE (05:30)
--- NOTE | 2018-07-08 06:36 | ED EENT ---
History of Present Illness General Chief Complaint: Dental Problems/Pain Stated Complaint: TOOTH ACHE Nursing Triage Note: While in waiting room, pt noted to be cursing, pacing, restless, agressive, and yelling. 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 Reports to have tried rincing with warm salt water with no relief. Source: patient Exam Limitations: no limitations History of Present Illness Date Seen by Provider: July 08, 2018 Time Seen by Provider: 05:20 Initial Comments This 32-year-old man presents to emergency room in distress due to left upper dental pain. This started within the past few hours. He was noted to be in distress and hollering out in the waiting room. Patient admits to drinking a significant amount of alcohol daily and using methamphetamines. He is afebrile. He tried rinsing with salt water which was not helpful. He has not taken any pain medications. Allergies and Home Medications Allergies Coded Allergies: amoxicillin (Verified Allergy, Unknown, rash, 10/23/17) Home Medications Clindamycin HCl 300 Mg Capsule, 300 MG PO TID Prescribed by: EAGLE FORTUNE on 07/08/18 0638 Patient Home Medication List Home Medication List Reviewed: Yes Review of Systems Review of Systems Constitutional: no symptoms reported Eyes: No Symptoms Reported Ears: No Symptoms Reported Nose: no symptoms reported Mouth: see HPI Throat: no symptoms reported Respiratory: no symptoms reported Cardiovascular: no symptoms reported Gastrointestinal: no symptoms reported Musculoskeletal: no symptoms reported Skin: no symptoms reported Hematologic/Lymphatic: No Symptoms Reported Past Irimtsr-Tjjhvh-Fevewa Hx Patient Social History Alcohol Use: Regular Use Number of Drinks Today: GG Alcohol Beverage of Choice: Whiskey Recreational Drug Use: Yes Drug of Choice: +IV METH, COCAINE, THC, MUSHROOMS, XANAX, OPIATES/HYDROCODONE Smoking Status: Current Everyday Smoker Type Used: Cigarettes 2nd Hand Smoke Exposure: Yes Recent Foreign Travel: No Contact w/Someone Who Travel: No Recent Infectious Disease Expo: No Recent Hopitalizations: No Immunizations Up To Date Tetanus Booster (TDap): Less than 5yrs Seasonal Allergies Seasonal Allergies: No Past Medical History Surgeries: Yes Abdominal, Eye Surgery, Tonsillectomy Respiratory: No Asthma Currently Using CPAP: No Currently Using BIPAP: No Cardiac: No Neurological: Yes Seizure Disorder Reproductive Disorders: No Sexually Transmitted Disease: No HIV/AIDS: No Genitourinary: No Gastrointestinal: No Musculoskeletal: No Endocrine: No HEENT: No Cancer: No Psychosocial: Yes (POLYSUBSTANCE ABUSE) Anxiety Integumentary: No Blood Disorders: No Adverse Reaction/Blood Tranf: No Physical Exam Vital Signs Vital Signs - First Documented 07/08/18 05:15 Temp 97.6 Pulse 100 Resp 20 B/P (MAP) 139/95 (110) Pulse Ox 97 O2 Delivery Room Air Height, Weight, BMI Height: 5'11.00" Weight: 200lbs. 12.8oz. 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, no motor/sensory deficits, alert, oriented x 3, other (agitated) Skin: normal color, warm/dry Procedures/Interventions Date of ETT Placement: Mar 01, 2017 Time of ETT Placement: 427 Progress/Results/Core Measures Results/Orders My Orders Orders - EAGLE BURGESS MD Ketorolac Injection (Toradol Injection) (07/08/18 05:30) Clindamycin Capsule (Cleocin Capsule) (07/08/18 05:30) Medications Given in ED Current Medications Medications Dose Ordered Sig/Yvette Route Start Time Stop Time Status Last Admin Dose Admin Clindamycin HCl 300 mg ONCE ONCE PO 07/08/18 05:30 07/08/18 05:31 DC 07/08/18 05:31 300 MG Ketorolac Tromethamine 30 mg ONCE ONCE IM 07/08/18 05:30 07/08/18 05:31 DC 07/08/18 05:32 30 MG Vital Signs/I&O 07/08/18 07/08/18 05:15 06:46 Temp 97.6 97.6 Pulse 100 98 Resp 20 17 B/P (MAP) 139/95 (110) 124/87 (99) Pulse Ox 97 97 O2 Delivery Room Air Room Air Blood Pressure Mean: 110 Progress Progress Note : Progress Note Patient received a Toradol injection which significantly improved his pain. He was started on clindamycin in the ER. Clindamycin was chosen due to penicillin allergy. I did address the drug and alcohol use with the patient. He reports good knowledge of available resources and may seek those out in the near future. Departure Impression Primary Impression: Pain, dental Additional Impressions: Gingivitis Polysubstance abuse Disposition: HOME, SELF-CARE Condition: Improved Departure-Patient Inst. Decision time for Depature: 06:34 Referrals: [facility] (PCP/Family) Primary Care Physician Patient Instructions: Dental Pain (DC) Add. Discharge Instructions: Follow-up with the dentist as soon as possible. For pain take ibuprofen up to 600 mg every 6 hours. Add Tylenol (acetaminophen ) up to 1000 mg every 6 hours as needed for additional pain relief. Seek assistance as needed for drug and alcohol treatment. Do not abruptly stop alcohol consumption as this may cause life-threatening withdrawal and seizures. Alcohol cessation should always be done under the direction of a healthcare provider. Return to emergency room if you have worsening symptoms. [place] your teeth gently twice daily. Rinse with antiseptic mouth wash twice daily as tolerated. All discharge instructions reviewed with patient and/or family. Voiced understanding. Scripts Clindamycin HCl (Clindamycin HCl) 300 Mg Capsule 300 MG PO TID, #30 CAP Prov: EAGLE BURGESS MD 07/08/18 EAGLE BURGESS MD July 08, 2018 06:36
[2018-07-08] MEDS ORDERED: CLIN300C11 PO (06:38)
[2018-07-08 06:46] VITALS: BP 124/87
== END 2018-07-08 06:46 | disposition home or self-care (01) ==
LOC: EDUNIT# 04:55 → ER 04:57
DX: K05.10 Chronic gingivitis, plaque induced (principal); J45.909 Unspecified asthma, uncomplicated; G40.909 Epilepsy, unspecified, not intractable, without status epilepticus; F41.9 Anxiety disorder, unspecified; F15.10 Other stimulant abuse, uncomplicated; F14.10 Cocaine abuse, uncomplicated; F12.10 Cannabis abuse, uncomplicated; F17.210 Nicotine dependence, cigarettes, uncomplicated; Z88.0 Allergy status to penicillin; Z90.89 Acquired absence of other organs
CPT/HCPCS: 96372; 99284

== ENCOUNTER 2018-09-15 00:52 | Emergency (ER) | payer SELFPAY ==
[~2018-09-15] VITALS: Ht 172.7 cm; Wt 86.2 kg
[~2018-09-15 00:52] MED LIST changes: +CLIN300C11 PO
[2018-09-15] MEDS ORDERED: LORazepam 0.5 MG (ATIVAN) TABLET PO STA (01:13)
[2018-09-15] MEDS ORDERED: NS IV 1000 ML 1,000 ML IV ONE (01:14)
[2018-09-15] MEDS ORDERED: ONDANSETRON 4 MG (ZOFRAN) ORAL DISSOLVE TAB ONE (01:17)
[2018-09-15] MEDS ORDERED: ONDANSETRON 4 MG (ZOFRAN) ORAL DISSOLVE TAB SL ONE (01:30)
--- NOTE | 2018-09-15 01:35 | NUR ---
Patient is demanding a blanket upon arrival to the room, is non-compliant with answering medical questions. Patient advises meth use recently but will not disclose when last use was.
--- NOTE | 2018-09-15 01:45 | NUR ---
Patient is thrashing around in the bed and moves to the floor and proceeds to advise that he is going to vomit and is given an emesis noble. He is now on hands and knees and is attempting to make himself vomit. Patient gags himself multiple times. Is repeatedly offered PO medication for relief of nausea but is non-compliant.
--- NOTE | 2018-09-15 01:50 | NUR ---
Patient is willing to take PO medication for nausea and proceedes to get back into bed. Patient is then willing to take anti-anxiety medication with repeated coaching and reasurrance and explaination.
--- NOTE | 2018-09-15 02:15 | NUR ---
Patient is up wandering around the room and will not leave monitor cables on. Is advising he is opening the cabinets in the room because he belives there is something in them. Patient returns to the bed and is laying with his feet at the head of the bed.
--- NOTE | 2018-09-15 02:30 | NUR ---
Patient is refusing IV start per Bogdan Miller RN and is wanting to sign AMA. Patient then advises he is willing to stay and receive fluids.
--- NOTE | 2018-09-15 02:59 | NUR ---
Patient continues to be non-compliant with medical care. IV established and patient now decides to refusee care. He was informed of risk/benefit and continues to refuse.
[2018-09-15 03:01] VITALS: BP 129/76
[2018-09-15 03:04] LABS: BASOPHILS % (AUTO) 0 % (0-10); EOSINOPHILS # (AUTO) 0.1 10^3/uL (0.0-0.3); EOSINOPHILS % (AUTO) 0 % (0-10); HEMATOCRIT 42 % (40-54); HEMOGLOBIN 14.8 G/DL (13.3-17.7); LYMPHOCYTES # (AUTO) 0.4 X 10^3 (1.0-4.0); LYMPHOCYTES % (AUTO) 3 % (12-44); MEAN CORPUSCULAR HEMOGLOBIN 30 PG (25-34); MEAN CORPUSCULAR HGB CONC 35 G/DL (32-36); MEAN CORPUSCULAR VOLUME 85 FL (80-99); MEAN PLATELET VOLUME 9.3 FL (7.4-10.4); MONOCYTES # (AUTO) 0.2 X 10^3 (0.0-1.0); MONOCYTES % (AUTO) 1 % (0-12); NEUTROPHILS # (AUTO) 15.3 X 10^3 (1.8-7.8); NEUTROPHILS % (AUTO) 96 % (42-75); PLATELET COUNT 247 10^3/uL (130-400); RED CELL DISTRIBUTION WIDTH 13.2 % (10.0-14.5); WHITE BLOOD COUNT 15.9 10^3/uL (4.3-11.0)
--- NOTE | 2018-09-15 03:04 | ED Psychosocial ---
General Chief Complaint: Substance Abuse Stated Complaint: LT HAND NUMB, PROBLEMS WITH BLOOD PRESSURE Nursing Triage Note: Patient presented to the ER with complains of numbness in his left hand. Patient is extremely anxious and is unable to set still. Patient continues to experience bizarre behavior and advises that he used meth recently. Source: patient, old records Exam Limitations: no limitations History of Present Illness Date Seen by Provider: Sep 15, 2018 Time Seen by Provider: 01:00 Initial Comments This 33-year-old man presents to the emergency room initially with complaints of numbness in his left hand that started sometime late last night or this morning. He then notes the Abrahan is actually in both hands and he appears to be hyperventilating. He is tachycardic and jittery. He admits to using meth amphetamines recently and drinking alcohol yesterday morning. Patient has a history of significant medical problems secondary to substance abuse. He has been seen in the ER and admitted for these problems including renal failure. Patient is reluctant to have any evaluation performed. Allergies and Home Medications Allergies Coded Allergies: amoxicillin (Verified Allergy, Unknown, rash, 10/23/17) Home Medications Clindamycin HCl 300 Mg Capsule, 300 MG PO TID Prescribed by: EAGLE FORTUNE on 07/08/18 0638 Patient Home Medication List Home Medication List Reviewed: Yes Review of Systems Constitutional: see HPI EENTM: no symptoms reported Respiratory: no symptoms reported Cardiovascular: see HPI Gastrointestinal: no symptoms reported Genitourinary: no symptoms reported Musculoskeletal: no symptoms reported Skin: no symptoms reported Psychiatric/Neurological: See HPI Past Rganekd-Xvodwa-Xazkcy Hx Patient Social History Alcohol Use: Denies Use Number of Drinks Today: GG Alcohol Beverage of Choice: Whiskey Recreational Drug Use: Yes Drug of Choice: +IV METH, COCAINE, THC, MUSHROOMS, XANAX, OPIATES/HYDROCODONE Type Used: Cigarettes 2nd Hand Smoke Exposure: Yes Recent Foreign Travel: No Contact w/Someone Who Travel: No Recent Infectious Disease Expo: No Recent Hopitalizations: No Immunizations Up To Date Tetanus Booster (TDap): Less than 5yrs Seasonal Allergies Seasonal Allergies: No Past Medical History Surgeries: Yes Abdominal, Eye Surgery, Tonsillectomy Respiratory: No Asthma Currently Using CPAP: No Currently Using BIPAP: No Cardiac: No Neurological: Yes Seizure Disorder Reproductive Disorders: No Sexually Transmitted Disease: No HIV/AIDS: No Genitourinary: No Gastrointestinal: No Musculoskeletal: No Endocrine: No HEENT: No Cancer: No Psychosocial: Yes (POLYSUBSTANCE ABUSE) Anxiety Integumentary: No Blood Disorders: No Adverse Reaction/Blood Tranf: No Physical Exam Vital Signs - First Documented 09/15/18 01:35 Temp 99.3 Pulse 123 Resp 30 B/P (MAP) 139/120 (126) Pulse Ox 100 O2 Delivery Room Air Capillary Refill : Less Than 3 Seconds Height, Weight, BMI Height: 5'8.00" Weight: 190lbs. 12.8oz. 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, no motor/sensory deficits, alert, other (anxious, jittery, agitated) Appearance/Memory: disheveled Behavior/Eye Contact: uncooperative Skin: normal color, warm/dry Procedures/Interventions Date of ETT Placement: Mar 01, 2017 Time of ETT Placement: 427 Progress/Results/Core Measures Results/Orders Lab Results Laboratory Tests Test 09/15/18 02:57 Range/Units White Blood Count 15.9 H 4.3-11.0 10^3/uL Red Blood Count 4.95 4.35-5.85 10^6/uL Hemoglobin 14.8 13.3-17.7 G/DL Hematocrit 42 40-54 % Mean Corpuscular Volume 85 80-99 FL Mean Corpuscular Hemoglobin 30 25-34 PG Mean Corpuscular Hemoglobin Concent 35 32-36 G/DL Red Cell Distribution Width 13.2 10.0-14.5 % Platelet Count 247 130-400 10^3/uL Mean Platelet Volume 9.3 7.4-10.4 FL Neutrophils (%) (Auto) 96 H 42-75 % Lymphocytes (%) (Auto) 3 L 12-44 % Monocytes (%) (Auto) 1 0-12 % Eosinophils (%) (Auto) 0 0-10 % Basophils (%) (Auto) 0 0-10 % Neutrophils # (Auto) 15.3 H 1.8-7.8 X 10^3 Lymphocytes # (Auto) 0.4 L 1.0-4.0 X 10^3 Monocytes # (Auto) 0.2 0.0-1.0 X 10^3 Eosinophils # (Auto) 0.1 0.0-0.3 10^3/uL Basophils # (Auto) 0.0 0.0-0.1 10^3/uL Neutrophils % (Manual) 93 % Lymphocytes % (Manual) 5 % Monocytes % (Manual) 2 % Sodium Level 138 135-145 MMOL/L Potassium Level 2.9 L 3.6-5.0 MMOL/L Chloride Level 104 98-107 MMOL/L Carbon Dioxide Level 20 L 21-32 MMOL/L Anion Gap 14 5-14 MMOL/L Blood Urea Nitrogen 19 H 7-18 MG/DL Creatinine 0.99 0.60-1.30 MG/DL Estimat Glomerular Filtration Rate > 60 BUN/Creatinine Ratio 19 Glucose Level 116 H 70-105 MG/DL Calcium Level 9.0 8.5-10.1 MG/DL Corrected Calcium 8.8 8.5-10.1 MG/DL Magnesium Level 1.7 L 1.8-2.4 MG/DL Total Bilirubin 1.7 H 0.1-1.0 MG/DL Aspartate Amino Transf (AST/SGOT) 50 H 5-34 U/L Alanine Aminotransferase (ALT/SGPT) 35 0-55 U/L Alkaline Phosphatase 76 40-136 U/L Troponin I < 0.028 <0.028 NG/ML Total Protein 6.6 6.4-8.2 GM/DL Albumin 4.2 3.2-4.5 GM/DL Serum Alcohol < 10 <10 MG/DL My Orders Orders - EAGLE BURGESS MD Lorazepam Tablet (Ativan Tablet) (09/15/18 01:13) Alcohol (09/15/18 01:14) Cbc With Automated Diff (09/15/18 01:14) Comprehensive Metabolic Panel (09/15/18 01:14) Magnesium (09/15/18 01:14) Ed Iv/Invasive Line Start (09/15/18 01:14) Ns Iv 1000 Ml (Sodium Chloride 0.9%) (09/15/18 01:14) Ondansetron Oral Dissolve Tab (Zofran (09/15/18 01:30) Ondansetron Oral Dissolve Tab (Zofran (09/15/18 01:17) Troponin I (09/15/18 02:33) Ekg Tracing (09/15/18 02:33) Monitor-Rhythm Ecg Trace Only (09/15/18 02:33) Manual Differential (09/15/18 02:57) Medications Given in ED Current Medications Medications Dose Ordered Sig/Yvette Route Start Time Stop Time Status Last Admin Dose Admin Ondansetron HCl 8 mg ONCE ONCE SL 09/15/18 01:30 09/15/18 01:31 DC 09/15/18 01:33 8 MG Vital Signs/I&O 09/15/18 09/15/18 01:35 03:01 Temp 99.3 Pulse 123 123 Resp 30 14 B/P (MAP) 139/120 (126) 129/76 (93) Pulse Ox 100 98 O2 Delivery Room Air Room Air Blood Pressure Mean: 126 Progress Progress Note #1: Time: 03:01 Progress Note Patient was agitated with any interventions including collection of vital signs and attempts to draw blood. He initially refused blood draw or IV start. He vomited in the exam room and was given sublingual Zofran followed by Ativan 1 mg orally. Patient was instructed not to drink any more water but he took the cup out of the trash can and filled with water to drink anyway. We then waited for Ativan to take effect and again requested IV start and blood draw. Patient refused to allow one nurse to perform these measures. Progress Note #2: Time: 07:56 Progress Note Patient eventually did allow for IV placement and blood draw. However, he then refused to have anything further. He refused to have IV fluids. He then wanted to leave AGAINST MEDICAL ADVICE before lab results were available. Patient signed the AMA paperwork and departed the emergency room. After review of labs, I felt it was prudent to notify him of his electrolyte abnormalities despite his decision to leave AGAINST MEDICAL ADVICE. However, he gave no phone number when he registered. I therefore was not able to contact the patient. I attempted to call his mother who was listed as an emergency contact but there was no answer and no voice mail. I was able to contact his aunt via his uncles emergency number. She did not know where he was or how to contact him. Departure Impression Primary Impression: Methamphetamine abuse Additional Impressions: Tachycardia Chest pain Qualified Codes: R07.9 - Chest pain, unspecified Agitation Left against medical advice Hypokalemia Leukocytosis Qualified Codes: D72.829 - Elevated white blood cell count, unspecified Disposition: 07 AGAINST MEDICAL ADVICE Condition: Against Medical Advice Departure-Patient Inst. Referrals: [facility] (PCP/Family) Primary Care Physician Patient Instructions: ALCOHOL AND SUBSTANCE ABUSE EAGLE BURGESS MD Sep 15, 2018 03:04
[2018-09-15 03:28] LABS: ALANINE AMINOTRANSFERASE 35 U/L (0-55); ALBUMIN 4.2 GM/DL (3.2-4.5); ALKALINE PHOSPHATASE 76 U/L (40-136); BILIRUBIN,TOTAL 1.7 MG/DL (0.1-1.0); BUN/CREATININE RATIO 19; CARBON DIOXIDE 20 MMOL/L (21-32); CHLORIDE 104 MMOL/L (98-107); CREATININE SERUM 0.99 MG/DL (0.60-1.30); GFR ESTIMATED > 60; GLUCOSE 116 MG/DL (70-105); MAGNESIUM 1.7 MG/DL (1.8-2.4); POTASSIUM 2.9 MMOL/L (3.6-5.0); SODIUM 138 MMOL/L (135-145); TOTAL PROTEIN 6.6 GM/DL (6.4-8.2)
[2018-09-15 04:05] LABS: LYMPHOCYTES % (MANUAL) 5 %; MONOCYTES % (MANUAL) 2 %; NEUTROPHILS % (MANUAL) 93 %
== END 2018-09-15 03:09 | disposition left against medical advice (07) ==
LOC: EDUNIT# 00:52 → ER 00:55
DX: F15.10 Other stimulant abuse, uncomplicated (principal); E87.6 Hypokalemia; D72.829 Elevated white blood cell count, unspecified; R45.1 Restlessness and agitation; R00.0 Tachycardia, unspecified; R07.9 Chest pain, unspecified; F14.10 Cocaine abuse, uncomplicated; F12.10 Cannabis abuse, uncomplicated; F11.10 Opioid abuse, uncomplicated; F19.10 Other psychoactive substance abuse, uncomplicated; J45.909 Unspecified asthma, uncomplicated; G40.909 Epilepsy, unspecified, not intractable, without status epilepticus; F41.9 Anxiety disorder, unspecified; Z77.22 Contact with and (suspected) exposure to environmental tobacco smoke (acute) (chronic); Z88.1 Allergy status to other antibiotic agents; Z90.89 Acquired absence of other organs
CPT/HCPCS: 36415; 80053; 80320; 83735; 84484; 85007; 85027; 93041

== ENCOUNTER 2020-10-19 19:37 | Emergency (ER) | payer SELFPAY ==
[~2020-10-19] VITALS: Ht 180 cm; Wt 95.3 kg
[~2020-10-19 19:37] MED LIST changes: -CLIN300C11 PO; +CLIN300C12 PO; -IBUP-2055 PO; +IBUP-2473 PO; +MULT-567 PO; -MULT1TAB69 PO
[2020-10-19] MEDS ORDERED: IBUPROFEN 800 MG (MOTRIN) TAB PO ONE (20:45)
[2020-10-19 20:56] LABS: ALBUMIN 4.2 GM/DL (3.2-4.5); BASOPHILS % (AUTO) 1 % (0-10); EOSINOPHILS # (AUTO) 0.1 10^3/uL (0.0-0.3); EOSINOPHILS % (AUTO) 1 % (0-10); HEMATOCRIT 44 % (40-54); HEMOGLOBIN 15.4 g/dL (13.3-17.7); LYMPHOCYTES # (AUTO) 1.7 10^3/uL (1.0-4.0); LYMPHOCYTES % (AUTO) 25 % (12-44); MEAN CORPUSCULAR HEMOGLOBIN 32 pg (25-34); MEAN CORPUSCULAR HGB CONC 35 g/dL (32-36); MEAN CORPUSCULAR VOLUME 91 fL (80-99); MEAN PLATELET VOLUME 9.3 fL (9.0-12.2); MONOCYTES # (AUTO) 0.9 10^3/uL (0.0-1.0); MONOCYTES % (AUTO) 13 % (0-12); NEUTROPHILS % (AUTO) 60 % (42-75); PLATELET COUNT 237 10^3/uL (130-400); POTASSIUM 3.4 MMOL/L (3.6-5.0); WHITE BLOOD COUNT 6.7 10^3/uL (4.3-11.0)
[2020-10-19 20:57] LABS: CALCIUM 8.8 MG/DL (8.5-10.1)
[2020-10-19 20:59] LABS: TOTAL PROTEIN 7.2 GM/DL (6.4-8.2)
[2020-10-19 21:00] LABS: BILIRUBIN,TOTAL 0.7 MG/DL (0.1-1.0)
[2020-10-19 21:02] LABS: CREATININE SERUM 0.78 MG/DL (0.60-1.30)
--- NOTE | 2020-10-19 21:35 | ED General ---
General Chief Complaint: Cough/Cold/Flu Symptoms Stated Complaint: BODY ACHES Nursing Triage Note: PT TO WAITING RM PER [facility] INITIALLY. EMS REPORTED STABLE VITALS EN ROUTE. PT AMB TO RM 8 WHEN RM AVAILABLE W C/O BODY ACHES AND COUGH SX 1200 TODAY. PT STATES "EVERYTHING HURTS" REPEATEDLY DURING TRIAGE. PT REPORTS HE GOT A COVID VACCINE YESTERDAY AT [facility] BUT IS UNSURE WHICH ONE. 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 PT CLAIMS HE HAD A NEGATIVE COVID-19 TEST AT THAT TIME, AT [facility] HE HAS HAD A COUGH SINCE AROUND NOON TODAY NO OTHER SYMPTOMS REPORTED BY PT Allergies and Home Medications Allergies Coded Allergies: amoxicillin (Verified Allergy, Unknown, rash, 10/23/17) Home Medications Clindamycin HCl 300 Mg Capsule, 300 MG PO TID Prescribed by: EAGLE FORTUNE on 07/08/18 0638 Patient Home Medication List Home Medication List Reviewed: Yes Review of Systems Review of Systems Constitutional: see HPI Respiratory: cough Musculoskeletal: see HPI (BODY ACHES) Past Ugnueae-Fdjiik-Mpykfl Hx Patient Social History Tobacco Use?: Yes Tobacco type used: Cigarettes Smoking Status: Current Everyday Smoker Substance use?: Yes Substance type: Methamphetamine, Marijuana Additional substance use comme: HX OF IV METH, ALSO SMOKES IT Alcohol Use?: Yes Alcohol type: Beer, Hard Liquor Alcohol Frequency: Daily Pt feels they are or have been: No Immunizations Up To Date Tetanus Booster (TDap): Less than 5yrs First/Initial COVID19 Vaccinat: 10/18/2020 COVID19 Vaccine Commercial Attache: UNK TO PT. STATES HE GOT COVID VAC AT [facility] YESTERDAY. Seasonal Allergies Seasonal Allergies: No Past Medical History Surgeries: Yes Abdominal, Eye Surgery, Tonsillectomy Respiratory: Yes Asthma Currently Using CPAP: No Currently Using BIPAP: No Cardiac: No Neurological: Yes Seizure Disorder Reproductive Disorders: No Sexually Transmitted Disease: No HIV/AIDS: No Genitourinary: No Gastrointestinal: No Musculoskeletal: No Endocrine: No HEENT: No Cancer: No Psychosocial: Yes (POLYSUBSTANCE ABUSE) Anxiety Integumentary: No Blood Disorders: No Adverse Reaction/Blood Tranf: No Physical Exam Vital Signs Vital Signs - First Documented 10/19/20 20:24 Temp 36.4 Pulse 112 Resp 22 B/P (MAP) 148/107 (121) Pulse Ox 98 O2 Delivery Room Air Capillary Refill : Less Than 3 Seconds Height, Weight, BMI Height: 5'8.00" Weight: 190lbs. 12.8oz. [id number]; 29.00 BMI Method:Estimated General Appearance: Other (FILTHY, WEARING ONLY SOCKS-NO SHOES. MALODOROUS SPEECH CLEAR,BUT UNABLE TO KEEP ON SUBJECT. GAIT STEADY. ) HEENT: Other (POOR DENTITION) Respiratory: Normal Breath Sounds, No Accessory Muscle Use, No Respiratory Distress Cardiovascular: Regular Rate, Rhythm, No Murmur Gastrointestinal: Soft Extremity: No Pedal Edema Neurologic/Psychiatric: Alert, No Motor/Sensory Deficits Skin: Warm/Dry Procedures/Interventions Date of ETT Placement: Mar 01, 2017 Time of ETT Placement: 427 Progress/Results/Core Measures Suspected Sepsis SIRS Temperature: Pulse: 112 Respiratory Rate: 22 Laboratory Tests 10/19/20 20:38: White Blood Count 6.7 Blood Pressure 148 /107 Mean: 121 Laboratory Tests 10/19/20 20:38: Creatinine 0.78, Platelet Count 237, Total Bilirubin 0.7 Results/Orders Lab Results Laboratory Tests Test 10/19/20 20:33 10/19/20 20:38 Range/Units SARS-CoV-2 RNA (RT-PCR) Detected H Not Detecte White Blood Count 6.7 4.3-11.0 10^3/uL Red Blood Count 4.84 4.30-5.52 10^6/uL Hemoglobin 15.4 13.3-17.7 g/dL Hematocrit 44 40-54 % Mean Corpuscular Volume 91 80-99 fL Mean Corpuscular Hemoglobin 32 25-34 pg Mean Corpuscular Hemoglobin Concent 35 32-36 g/dL Red Cell Distribution Width 13.5 10.0-14.5 % Platelet Count 237 130-400 10^3/uL Mean Platelet Volume 9.3 9.0-12.2 fL Immature Granulocyte % (Auto) 0 % Neutrophils (%) (Auto) 60 42-75 % Lymphocytes (%) (Auto) 25 12-44 % Monocytes (%) (Auto) 13 H 0-12 % Eosinophils (%) (Auto) 1 0-10 % Basophils (%) (Auto) 1 0-10 % Neutrophils # (Auto) 4.0 1.8-7.8 10^3/uL Lymphocytes # (Auto) 1.7 1.0-4.0 10^3/uL Monocytes # (Auto) 0.9 0.0-1.0 10^3/uL Eosinophils # (Auto) 0.1 0.0-0.3 10^3/uL Basophils # (Auto) 0.0 0.0-0.1 10^3/uL Immature Granulocyte # (Auto) 0.0 0.0-0.1 10^3/uL Sodium Level 142 135-145 MMOL/L Potassium Level 3.4 L 3.6-5.0 MMOL/L Chloride Level 105 98-107 MMOL/L Carbon Dioxide Level 24 21-32 MMOL/L Anion Gap 13 5-14 MMOL/L Blood Urea Nitrogen 9 7-18 MG/DL Creatinine 0.78 0.60-1.30 MG/DL Estimat Glomerular Filtration Rate 113 BUN/Creatinine Ratio 12 Glucose Level 93 70-105 MG/DL Calcium Level 8.8 8.5-10.1 MG/DL Corrected Calcium 8.6 8.5-10.1 MG/DL Total Bilirubin 0.7 0.1-1.0 MG/DL Aspartate Amino Transf (AST/SGOT) 38 H 5-34 U/L Alanine Aminotransferase (ALT/SGPT) 46 0-55 U/L Alkaline Phosphatase 85 40-136 U/L Total Creatine Kinase 376 H 30-200 U/L Total Protein 7.2 6.4-8.2 GM/DL Albumin 4.2 3.2-4.5 GM/DL Serum Alcohol 266 H <10 MG/DL Medications Given in ED Vital Signs/I&O 10/19/20 10/19/20 10/19/20 20:24 20:24 22:05 Temp 36.4 Pulse 112 114 Resp 22 18 B/P (MAP) 148/107 (121) 128/88 Pulse Ox 98 98 O2 Delivery Room Air Room Air Room Air Capillary Refill : Less Than 3 Seconds Blood Pressure Mean: 121 Progress Note : Progress Note PLACED IN ISOLATION ROOM PPE WORN AT ALL TIMES COVID-19 TESTING PERFORMED DISCUSSED REG[facility] TREATMENT RISKS/BENEFITS. PT WOULD LIKE TO PURSUE THIS TREATMENT OPTION. ORDER SENT TO PHARMACY OF NOTE, PT IS HOMELESS AND DOES NOT HAVE A PHONE. Departure Impression Primary Impression: COVID-19 virus infection Additional Impression: Alcohol intoxication Disposition: 01 HOME, SELF-CARE Condition: Stable Departure-Patient Inst. Decision time for Depature: 21:45 Referrals: [facility] (PCP/Family) Primary Care Physician Patient Instructions: REGEN-COV (casirivimab and imdevimab) FDA Fact Sheet, COVID-19 (DC), Preventing the Spread of an Infectious Disease, Effects of Alcohol on Your Health Add. Discharge Instructions: NO ALCOHOL QUARANTINE YOURSELF AND ALL CLOSE CONTACTS FOR 2 WEEKS TYLENOL AND MOTRIN NEEDED FOR PAIN OR FEVER LOTS OF CLEAR LIQUIDS CALL HOSPITAL PHARMACY IN THE MORNING TO SCHEDULE REGENER[facility] INFUSION FOLLOW UP WITH [facility] IN 1 WEEK IF NO BETTER, RETURN TO ER IF WORSE All discharge instructions reviewed with patient and/or family. Voiced understanding. Work/School Note: Work Release Form Date Seen in the Emergency Department: Oct 19, 2020 Return to Work: Nov 03, 2020 SEVERIANO HERNÁNDEZ DO Oct 19, 2020 21:35
[2020-10-19 22:05] VITALS: BP 128/88
== END 2020-10-19 22:05 | disposition home or self-care (01) ==
LOC: EDUNIT# 19:37 → ER 19:39
DX: U07.1 COVID-19 (principal); F10.129 Alcohol abuse with intoxication, unspecified; F17.210 Nicotine dependence, cigarettes, uncomplicated
CPT/HCPCS: 80053; 82550; 85025; 87636; 99283; G0480; 36415; 80320

== ENCOUNTER 2020-11-24 16:40 | Emergency (ER) | payer SELFPAY ==
[~2020-11-24] VITALS: Ht 180 cm; Wt 85.1 kg
[2020-11-24 17:55] LABS: BASOPHILS # (AUTO) 0.1 10^3/uL (0.0-0.1); BASOPHILS % (AUTO) 2 % (0-10); EOSINOPHILS # (AUTO) 0.3 10^3/uL (0.0-0.3); EOSINOPHILS % (AUTO) 4 % (0-10); HEMATOCRIT 49 % (40-54); HEMOGLOBIN 17.3 g/dL (13.3-17.7); LYMPHOCYTES # (AUTO) 2.6 10^3/uL (1.0-4.0); LYMPHOCYTES % (AUTO) 34 % (12-44); MEAN CORPUSCULAR HEMOGLOBIN 33 pg (25-34); MEAN CORPUSCULAR HGB CONC 36 g/dL (32-36); MEAN CORPUSCULAR VOLUME 92 fL (80-99); MEAN PLATELET VOLUME 8.8 fL (9.0-12.2); MONOCYTES # (AUTO) 0.6 10^3/uL (0.0-1.0); MONOCYTES % (AUTO) 8 % (0-12); NEUTROPHILS % (AUTO) 52 % (42-75); PLATELET COUNT 308 10^3/uL (130-400); WHITE BLOOD COUNT 7.6 10^3/uL (4.3-11.0)
--- NOTE | 2020-11-24 17:59 | ED Neurological Problem ---
General Chief Complaint: Neurological Problems Stated Complaint: DETOX, SEIZURES Source: patient Exam Limitations: no limitations History of Present Illness Date Seen by Provider: Nov 24, 2020 Time Seen by Provider: 17:45 Initial Comments To ER with reports that he has had 3 seizures today. He has been drinking some alcohol to help hackett them off. He is set up for some outpatient detox at addiction treatment center in [place]. He wants to make sure that he does not have any more seizures. Timing/Duration: 24 hours Severity: moderate Allergies and Home Medications Allergies Coded Allergies: amoxicillin (Verified Allergy, Unknown, rash, 10/23/17) Patient Home Medication List Home Medication List Reviewed: Yes Chlordiazepoxide HCl (Chlordiazepoxide HCl) 25 Mg Capsule, 25 MG PO UD Prescribed by: JANUSZ YEH on 11/24/20 1848 Last Action: New Order Clindamycin HCl (Clindamycin HCl) 300 Mg Capsule, 300 MG PO TID Prescribed by: EAGLE FORTUNE on 07/08/18 0638 Review of Systems Review of Systems Constitutional: see HPI Eyes: No Symptoms Reported Ears, Nose, Mouth, Throat: no symptoms reported Respiratory: no symptoms reported Cardiovascular: no symptoms reported Genitourinary: no symptoms reported Musculoskeletal: no symptoms reported Skin: no symptoms reported Psychiatric/Neurological: No Symptoms Reported Endocrine: No Symptoms Reported Past Nshlzek-Lulzpr-Pbyuac Hx Immunizations Up To Date Tetanus Booster (TDap): Less than 5yrs Seasonal Allergies Seasonal Allergies: No Past Medical History Surgeries: Yes Abdominal, Eye Surgery, Tonsillectomy Respiratory: Yes Asthma Currently Using CPAP: No Currently Using BIPAP: No Cardiac: No Neurological: Yes Seizure Disorder Reproductive Disorders: No Sexually Transmitted Disease: No HIV/AIDS: No Genitourinary: No Gastrointestinal: No Musculoskeletal: No Endocrine: No HEENT: No Cancer: No Psychosocial: Yes (POLYSUBSTANCE ABUSE) Anxiety Integumentary: No Blood Disorders: No Adverse Reaction/Blood Tranf: No Physical Exam Vital Signs Vital Signs - First Documented 11/24/20 17:47 Temp 35.8 Pulse 90 Resp 15 B/P (MAP) 137/99 (112) Capillary Refill : Height, Weight, BMI Height: 5'8.00" Weight: 190lbs. 12.8oz. 86.015726au; 29.00 BMI Method:Estimated General Appearance: WD/WN, no apparent distress HEENT: PERRL/EOMI, normal ENT inspection Respiratory: no respiratory distress, no accessory muscle use Gastrointestinal: normal bowel sounds, non tender, soft Neurologic/Psychiatric: alert, normal mood/affect, oriented x 3 Crainal Nerves: normal hearing, normal speech, PERRL Motor/Sensory: no motor deficit, no sensory deficit Skin: normal color, warm/dry Procedures/Interventions Date of ETT Placement: Mar 01, 2017 Time of ETT Placement: 427 Progress/Results/Core Measures Results/Orders Lab Results Laboratory Tests Test 11/24/20 17:45 Range/Units White Blood Count 7.6 4.3-11.0 10^3/uL Red Blood Count 5.30 4.30-5.52 10^6/uL Hemoglobin 17.3 13.3-17.7 g/dL Hematocrit 49 40-54 % Mean Corpuscular Volume 92 80-99 fL Mean Corpuscular Hemoglobin 33 25-34 pg Mean Corpuscular Hemoglobin Concent 36 32-36 g/dL Red Cell Distribution Width 14.0 10.0-14.5 % Platelet Count 308 130-400 10^3/uL Mean Platelet Volume 8.8 L 9.0-12.2 fL Immature Granulocyte % (Auto) 0 % Neutrophils (%) (Auto) 52 42-75 % Lymphocytes (%) (Auto) 34 12-44 % Monocytes (%) (Auto) 8 0-12 % Eosinophils (%) (Auto) 4 0-10 % Basophils (%) (Auto) 2 0-10 % Neutrophils # (Auto) 4.0 1.8-7.8 10^3/uL Lymphocytes # (Auto) 2.6 1.0-4.0 10^3/uL Monocytes # (Auto) 0.6 0.0-1.0 10^3/uL Eosinophils # (Auto) 0.3 0.0-0.3 10^3/uL Basophils # (Auto) 0.1 0.0-0.1 10^3/uL Immature Granulocyte # (Auto) 0.0 0.0-0.1 10^3/uL Prothrombin Time 12.6 12.2-14.7 SEC INR Comment 0.9 0.8-1.4 Sodium Level 141 135-145 MMOL/L Potassium Level 3.8 3.6-5.0 MMOL/L Chloride Level 102 98-107 MMOL/L Carbon Dioxide Level 27 21-32 MMOL/L Anion Gap 12 5-14 MMOL/L Blood Urea Nitrogen 9 7-18 MG/DL Creatinine 0.78 0.60-1.30 MG/DL Estimat Glomerular Filtration Rate 113 BUN/Creatinine Ratio 12 Glucose Level 77 70-105 MG/DL Calcium Level 9.5 8.5-10.1 MG/DL Corrected Calcium 8.5-10.1 MG/DL Total Bilirubin 0.9 0.1-1.0 MG/DL Aspartate Amino Transf (AST/SGOT) 79 H 5-34 U/L Alanine Aminotransferase (ALT/SGPT) 88 H 0-55 U/L Alkaline Phosphatase 83 40-136 U/L Total Protein 8.1 6.4-8.2 GM/DL Albumin 4.6 H 3.2-4.5 GM/DL Serum Alcohol 155 H <10 MG/DL My Orders Orders - JANUSZ YEH APRN Cbc With Automated Diff (11/24/20 17:47) Comprehensive Metabolic Panel (11/24/20 17:47) Alcohol (11/24/20 17:47) Protime With Inr (11/24/20 17:47) Ed Iv/Invasive Line Start (11/24/20 17:47) Folic Acid Tablet (Folic Acid Tablet) (11/24/20 18:00) Thiamine Tablet (Vitamin B-1 Tablet) (11/24/20 18:00) Lactated Ringers (Lr 1000 Ml Iv Solution (11/24/20 18:00) Lorazepam Injection (Ativan Injection) (11/24/20 18:00) Chest 1 View, Ap/Pa Only (11/24/20 18:18) Medications Given in ED Current Medications Medications Dose Ordered Sig/Yvette Route Start Time Stop Time Status Last Admin Dose Admin Folic Acid 1 mg ONCE ONCE PO 11/24/20 18:00 11/24/20 18:01 DC 11/24/20 18:12 1 MG Lorazepam 1 mg ONCE ONCE IVP 11/24/20 18:00 11/24/20 18:01 DC 11/24/20 18:12 1 MG Thiamine HCl 100 mg ONCE ONCE PO 11/24/20 18:00 11/24/20 18:01 DC 11/24/20 18:11 100 MG Vital Signs/I&O 11/24/20 17:47 Temp 35.8 Pulse 90 Resp 15 B/P (MAP) 137/99 (112) Departure Communication (Admissions) 1850-he would like to quit drinking. I offered him Librium and he states that he has taken that before at [place] and it worked well for him. He like to try that again. Impression Primary Impression: Alcohol abuse Disposition: HOME, SELF-CARE Condition: Stable Departure-Patient Inst. Decision time for Depature: 17:59 Referrals: [facility] (PCP/Family) Primary Care Physician Patient Instructions: ALCOHOL AND SUBSTANCE ABUSE Add. Discharge Instructions: All discharge instructions reviewed with patient and/or family. Voiced understanding. Scripts Chlordiazepoxide HCl (Chlordiazepoxide HCl) 25 Mg Capsule 25 MG PO UD, #12 CAP Day one 2 tablets every 8 hours Day two 2 tablets every 12 hours Day three 2 tablets at bedtime Prov: JANUSZ YEH APRN 11/24/20 JANUSZ YEH APRN Nov 24, 2020 17:59
[2020-11-24] MEDS ORDERED: LORazepam INJ 2 MG/ML (ATIVAN) VIAL IVP ONE (18:00)
[2020-11-24] MEDS ORDERED: FOLIC ACID 1 MG TAB PO ONE (18:00)
[2020-11-24] MEDS ORDERED: LACTATED RINGERS 1,000 ML IV SCH (18:00)
[2020-11-24] MEDS ORDERED: THIAMINE 100 MG (VITAMIN B-1) TAB PO ONE (18:00)
[2020-11-24 18:03] LABS: ALBUMIN 4.6 GM/DL (3.2-4.5); CHLORIDE 102 MMOL/L (98-107); POTASSIUM 3.8 MMOL/L (3.6-5.0)
[2020-11-24 18:04] LABS: SODIUM 141 MMOL/L (135-145)
[2020-11-24 18:05] LABS: CALCIUM 9.5 MG/DL (8.5-10.1); INR 0.9 (0.8-1.4); PROTHROMBIN TIME PATIENT 12.6 SEC (12.2-14.7)
[2020-11-24 18:06] LABS: GLUCOSE 77 MG/DL (70-105); TOTAL PROTEIN 8.1 GM/DL (6.4-8.2)
[2020-11-24 18:07] LABS: CARBON DIOXIDE 27 MMOL/L (21-32)
[2020-11-24 18:08] LABS: BILIRUBIN,TOTAL 0.9 MG/DL (0.1-1.0)
[2020-11-24 18:09] LABS: ALKALINE PHOSPHATASE 83 U/L (40-136); CREATININE SERUM 0.78 MG/DL (0.60-1.30); GFR ESTIMATED 113
[2020-11-24 18:11] LABS: BUN/CREATININE RATIO 12
[2020-11-24 18:12] LABS: ALANINE AMINOTRANSFERASE 88 U/L (0-55)
--- NOTE | 2020-11-24 18:37 | Diagnostic Imaging Report ---
INDICATION: Cough COMPARISON: 03/03/2017 FINDINGS: Frontal view of the chest demonstrates clear lungs bilaterally. The heart size is normal. There is no pneumothorax. Osseous structures are normal. IMPRESSION: No acute findings. Normal chest. Dictated by: Dictated on workstation # [id number]
[2020-11-24] MEDS ORDERED: CHLO25CA10 PO (18:48)
[2020-11-24 19:01] VITALS: BP 140/98
[2020-11-25] MEDS ORDERED: CHLO25CA10 PO (14:31)
== END 2020-11-24 19:01 | disposition home or self-care (01) ==
LOC: EDUNIT# 16:40 → ER 16:44
DX: F10.10 Alcohol abuse, uncomplicated (principal); J45.909 Unspecified asthma, uncomplicated; F41.9 Anxiety disorder, unspecified; Y90.6 Blood alcohol level of 120-199 mg/100 ml
CPT/HCPCS: 71045; 80053; 85025; 85610; 96374; 99284; G0480; 36415; 80320

== ENCOUNTER → 2021-09-21 | Emergency (ER) | payer SELFPAY ==
[~2021-09-21] MED LIST changes: +CHLO25CA10 PO; +CLIN-144 PO; -CLIN300C12 PO
== END ==
LOC: EDUNIT# 14:19 → ER 14:21
DX: R45.851 Suicidal ideations (principal)

== ENCOUNTER 2022-03-07 03:04 | Emergency (ER) | payer SELFPAY ==
[2022-03-07 03:05] VITALS: BP 129/89
--- NOTE | 2022-03-07 03:45 | ED General ---
General Chief Complaint: Neurological Problems Stated Complaint: SEIZURE & ALCOHOL ABUSE Nursing Triage Note: TO ED VIA [facility]. PER EMS PT C/O SEIZURES. ON ARRIVAL WHILE TRYING TO ASK TRIAGE QUESTIONS PT IS BELLIGERENT AND YELLING AND CUSSING. PT STATES, "I'M NOT TRYING TO BE COMBATIVE", BUT CONTINUES TO YELL AND SCREAM AND NOT ANSWER QUESTIONS FOR TRIAGE. History of Present Illness Date Seen by Provider: Mar 07, 2022 Time Seen by Provider: 03:10 Initial Comments 36-year-old male with PMH of alcohol addiction, and seizures, is brought in by EMS for seizures. EMS reports that when they reached the patient's home, he was alert and oriented and speaking clearly without any evidence of seizures. Patient states that he has not taken seizure medication since he was 16 years old. Patient states that he does not take any medications. Patient drank a quart of vodka today and has not had anything to eat since morning. In the ER patient is belligerent, and aggressive and violent towards nursing staff. Patient is attempting to kick the nurse, using profanity and screaming and yelling. Allergies and Home Medications Allergies Coded Allergies: amoxicillin (Verified Allergy, Unknown, rash, 10/23/17) Patient Home Medication List Home Medication List Reviewed: Yes Chlordiazepoxide HCl (Chlordiazepoxide HCl) 25 Mg Capsule, 25 MG PO UD Prescribed by: JANUSZ YEH on 11/25/20 1431 Clindamycin HCl (Clindamycin HCl) 300 Mg Capsule, 300 MG PO TID Prescribed by: EAGLE FORTUNE on 07/08/18 0638 Review of Systems Review of Systems Constitutional: no symptoms reported EENTM: no symptoms reported Respiratory: no symptoms reported Cardiovascular: no symptoms reported Gastrointestinal: no symptoms reported Genitourinary: no symptoms reported Musculoskeletal: no symptoms reported Skin: no symptoms reported Psychiatric/Neurological: Emotional Problems, Seizure Hematologic/Lymphatic: No Symptoms Reported Immunological/Allergic: no symptoms reported Past Fpwbhay-Ejkqjy-Qsnsgv Hx Immunizations Up To Date Tetanus Booster (TDap): Less than 5yrs First/Initial COVID19 Vaccinat: 10/18/20 Second COVID19 Vaccination Luis: 10/18/20 Third COVID19 Vaccination Date: 10/18/20 Seasonal Allergies Seasonal Allergies: No Past Medical History Surgeries: Yes Abdominal, Eye Surgery, Tonsillectomy Respiratory: Yes Asthma Currently Using CPAP: No Currently Using BIPAP: No Cardiac: No Neurological: Yes Seizure Disorder Reproductive Disorders: No Sexually Transmitted Disease: No HIV/AIDS: No Genitourinary: No Gastrointestinal: No Musculoskeletal: No Endocrine: No HEENT: No Cancer: No Psychosocial: Yes (POLYSUBSTANCE ABUSE) Anxiety Integumentary: No Blood Disorders: No Adverse Reaction/Blood Tranf: No Physical Exam Vital Signs Vital Signs - First Documented 03/07/22 03:05 Pulse 105 B/P (MAP) 129/89 (102) O2 Delivery Room Air Capillary Refill : Height, Weight, BMI Height: 5'8.00" Weight: 190lbs. 12.8oz. 86.369447rv; 26.00 BMI Method:Estimated General Appearance: Moderate Distress (Patient is electing to kick staff, screaming and yelling, and using profanity towards the nurse. Patient spoke a little more calmly to me with police present in the room.) HEENT: PERRL/EOMI Neck: Full Range of Motion, Normal Inspection, Supple Respiratory: Lungs Clear Cardiovascular: Regular Rate, Rhythm Gastrointestinal: Non Tender, Soft Neurologic/Psychiatric: Alert, Oriented x3, No Motor/Sensory Deficits, Normal Mood/Affect, underground repairer II-XII Norm as Tested Skin: Normal Color Procedures/Interventions Date of ETT Placement: Mar 01, 2017 Time of ETT Placement: 427 Progress/Results/Core Measures Suspected Sepsis SIRS Temperature: Pulse: 105 Respiratory Rate: Blood Pressure 129 /89 Mean: 102 Results/Orders Vital Signs/I&O 03/07/22 03/07/22 03:05 03:05 Pulse 105 B/P (MAP) 129/89 (102) O2 Delivery Room Air Capillary Refill : Blood Pressure Mean: 102 Progress Note : Progress Note 1. POSSIBLE SEIZURE DUE TO ALCOHOLISM versus PSEUDOSEIZURES: AGGRESSIVE BEHAVIOR - Pt is refusing treatment , and is also violent and aggressive to ER staff. Pt will be leaving AMA since he cannot cooperate and his brother will take him home. - Advised to follow up with PCP ILDA Departure Impression Primary Impression: Alcohol abuse Additional Impression: Aggressive behavior Disposition: 07 AGAINST MEDICAL ADVICE Condition: Against Medical Advice Departure-Patient Inst. Referrals: [facility] (PCP/Family) Primary Care Physician CLARENCE HO MD Mar 07, 2022 03:45
== END 2022-03-07 03:52 | disposition left against medical advice (07) ==
LOC: EDUNIT# 03:04 → ER 03:05
DX: F10.10 Alcohol abuse, uncomplicated (principal)

== ENCOUNTER 2022-11-28 16:17 | Emergency (ER) | payer SELFPAY ==
[~2022-11-28] VITALS: Ht 175 cm; Wt 123.0 kg
--- NOTE | 2022-11-28 17:12 | ED Psychosocial ---
General Chief Complaint: Detox Stated Complaint: MULTIPLE SEIZURES, "NEEDS DETOX", NUMB IN RT HAND Nursing Triage Note: wants alcohol detox, last drink was in restroom in waiting room, this RN took whiskey from patient. Pt denies SI HI. States he has seizures his whole life with or without alcohol detox but has never been prescribed any medications for it. States he drinks half a liter vodka a day. states he had two seizures this AM. Source: patient Exam Limitations: intoxication (MALCOM MENDEZ MD) History of Present Illness Date Seen by Provider: Nov 28, 2022 Time Seen by Provider: 16:58 Initial Comments Patient is a 37-year-old male chronic polysubstance user/abuser who presents to the emergency department with a desire for detox. Patient states that he has been on the phone with the director of [facility] "all morning" and came today so that he can get sober. He drinks half a liter to a liter of alcohol daily. He was recently kicked out of [facility] about 2 weeks ago after approximately 10-1/2 months of sobriety. He is currently homeless. He is supposed to be on Vraylar but has not had it in the last 2 weeks since he lost his home. He does admit to methamphetamine use last was 3 days ago. He also states that he had "2 seizures" today. No witnesses to his seizures but he believes one of them resulted in incontinence of urine. He denies any injury. He states he has had some numbness to his right fourth and fifth finger that has been improving throughout the day. He is intermittently tearful. Denied suicidal or homicidal ideation to his nurse. Did present to the ED with a bottle of whiskey in hand. Timing/Duration: getting worse Severity: severe Associated Symptoms: ingestion (MALCOM MENDEZ MD) Allergies and Home Medications Allergies Coded Allergies: amoxicillin (Verified Allergy, Unknown, rash, 10/23/17) Patient Home Medication List Home Medication List Reviewed: Yes (MALCOM MENDEZ MD) Home Medication List Reviewed: Yes (SEVERIANO HERNÁNDEZ DO) Chlordiazepoxide HCl (Chlordiazepoxide HCl) 25 Mg Capsule, 25 MG PO UD Prescribed by: SEVERIANO HERNÁNDEZ on 11/28/221950 Clindamycin HCl (Clindamycin HCl) 300 Mg Capsule, 300 MG PO TID Prescribed by: EAGLE FORTUNE on 07/08/18 0638 Review of Systems Constitutional: see HPI EENTM: no symptoms reported Respiratory: no symptoms reported Cardiovascular: no symptoms reported Gastrointestinal: no symptoms reported Genitourinary: no symptoms reported Musculoskeletal: no symptoms reported Skin: no symptoms reported Psychiatric/Neurological: Numbness (right 4th and 5th fingers), Seizure (reported) (MALCOM MENDEZ MD) Past [id number] Hx Patient Social History Tobacco Use?: No Substance use?: No Alcohol Use?: Yes Alcohol type: Hard Liquor Alcohol Frequency: Daily Pt feels they are or have been: No (MALCOM MENDEZ MD) Immunizations Up To Date Tetanus Booster (TDap): Less than 5yrs First/Initial COVID19 Vaccinat: 10/18/20 Second COVID19 Vaccination Luis: 10/18/20 Third COVID19 Vaccination Date: 10/18/20 (MALCOM MENDEZ MD) Seasonal Allergies Seasonal Allergies: No (MALCOM MENDEZ MD) Past Medical History Surgery/Hospitalization HX: seizures, hyperlipidemia Surgeries: Yes Abdominal, Eye Surgery, Tonsillectomy Respiratory: Yes Asthma Currently Using CPAP: No Currently Using BIPAP: No Cardiac: No Neurological: Yes Seizure Disorder Reproductive Disorders: No Sexually Transmitted Disease: No HIV/AIDS: No Genitourinary: No Gastrointestinal: No Musculoskeletal: No Endocrine: No HEENT: No Cancer: No Psychosocial: Yes (POLYSUBSTANCE ABUSE) Anxiety Integumentary: No Blood Disorders: No Adverse Reaction/Blood Tranf: No (MALCOM MENDEZ MD) Physical Exam Vital Signs - First Documented 11/28/22 11/28/22 16:31 18:15 Temp 36.7 Pulse 99 Resp 20 B/P (MAP) 165/100 (121) Pulse Ox 98 O2 Delivery Nasal Cannula O2 Flow Rate 2.00 (SEVERIANO HERNÁNDEZ DO) Capillary Refill : Less Than 3 Seconds (MALCOM MENDEZ MD) Height, Weight, BMI Height: 5'8.00" Weight: 190lbs. 12.8oz. [id number]; 40.00 BMI Method:Estimated General Appearance: WD/WN, mild distress (tearful) HEENT: PERRL/EOMI (mild conjunctival injection bilaterally) Respiratory: lungs clear, normal breath sounds, no respiratory distress, no accessory muscle use Cardiovascular: regular rate, rhythm Gastrointestinal: normal bowel sounds, non tender, soft Extremities: normal range of motion, normal inspection Neurologic/Psychiatric: alert, other (obviously intoxicated) Appearance/Memory: disheveled, impaired insight, impaired recent memory Behavior/Eye Contact: cooperative, other (intermittently crying) Thoughts/Hallucinations: no apparent hallucination Skin: normal color, warm/dry (MALCOM MENDEZ MD) Procedures/Interventions Date of ETT Placement: Mar 01, 2017 Time of ETT Placement: [phone] (MALCOM MENDEZ MD) Progress/Results/Core Measures Results/Orders Lab Results Laboratory Tests Test 11/28/22 16:59 11/28/22 17:15 11/28/22 19:35 Range/Units White Blood Count 9.0 4.3-11.0 10^3/uL Red Blood Count 5.35 4.30-5.52 10^6/uL Hemoglobin 15.8 13.3-17.7 g/dL Hematocrit 45 40-54 % Mean Corpuscular Volume 84 80-99 fL Mean Corpuscular Hemoglobin 30 25-34 pg Mean Corpuscular Hemoglobin Concent 35 32-36 g/dL Red Cell Distribution Width 12.9 10.0-14.5 % Platelet Count 250 130-400 10^3/uL Mean Platelet Volume 9.6 9.0-12.2 fL Immature Granulocyte % (Auto) 0 % Neutrophils (%) (Auto) 52 42-75 % Lymphocytes (%) (Auto) 37 12-44 % Monocytes (%) (Auto) 7 0-12 % Eosinophils (%) (Auto) 2 0-10 % Basophils (%) (Auto) 1 0-10 % Neutrophils # (Auto) 4.7 1.8-7.8 10^3/uL Lymphocytes # (Auto) 3.4 1.0-4.0 10^3/uL Monocytes # (Auto) 0.7 0.0-1.0 10^3/uL Eosinophils # (Auto) 0.2 0.0-0.3 10^3/uL Basophils # (Auto) 0.1 0.0-0.1 10^3/uL Immature Granulocyte # (Auto) 0.0 0.0-0.1 10^3/uL Sodium Level 141 135-145 MMOL/L Potassium Level 3.5 L 3.6-5.0 MMOL/L Chloride Level 100 98-107 MMOL/L Carbon Dioxide Level 23 21-32 MMOL/L Anion Gap 18 H 5-14 MMOL/L Blood Urea Nitrogen 9 7-18 MG/DL Creatinine 0.78 0.60-1.30 MG/DL Estimat Glomerular Filtration Rate 118 BUN/Creatinine Ratio 12 Glucose Level 75 70-105 MG/DL Calcium Level 8.5 8.5-10.1 MG/DL Corrected Calcium 8.2 L 8.5-10.1 MG/DL Total Bilirubin 1.0 0.1-1.0 MG/DL Aspartate Amino Transf (AST/SGOT) 55 H 5-34 U/L Alanine Aminotransferase (ALT/SGPT) 65 H 0-55 U/L Alkaline Phosphatase 58 40-136 U/L Total Protein 7.2 6.4-8.2 GM/DL Albumin 4.4 3.2-4.5 GM/DL Salicylates Level < 5.0 L 5.0-20.0 MG/DL Acetaminophen Level < 10 L 10-30 UG/ML Serum Alcohol 238 H <10 MG/DL SARS-CoV-2 RNA (RT-PCR) Not Detected Not Detecte Urine Opiates Screen NEGATIVE NEGATIVE Urine Oxycodone Screen NEGATIVE NEGATIVE Urine Methadone Screen NEGATIVE NEGATIVE Urine Propoxyphene Screen NEGATIVE NEGATIVE Urine Barbiturates Screen NEGATIVE NEGATIVE Ur Tricyclic Antidepressants Screen NEGATIVE NEGATIVE Urine Phencyclidine Screen NEGATIVE NEGATIVE Urine Amphetamines Screen POSITIVE H NEGATIVE Urine Methamphetamines Screen POSITIVE H NEGATIVE Urine Benzodiazepines Screen NEGATIVE NEGATIVE Urine Cocaine Screen NEGATIVE NEGATIVE Urine Cannabinoids Screen NEGATIVE NEGATIVE (SEVERIANO HERNÁNDEZ DO) My Orders Orders - SEVERIANO HERNÁNDEZ DO Ed Iv/Invasive Line Start (11/28/22 17:55) Lactated Ringers 1,000 Ml (Lactated Ring (11/28/22 18:00) Ed Iv/Invasive Line Start (11/28/22 18:54) Lactated Ringers 1,000 Ml (Lactated Ring (11/28/22 19:00) Ondansetron Injection (Ondansetron Inj (11/28/22 19:45) Pantoprazole Injection (Pantoprazole Inj (11/28/22 19:45) (SEVERIANO HERNÁNDEZ DO) Medications Given in ED Current Medications Medications Dose Ordered Sig/Yvette Route Start Time Stop Time Status Last Admin Dose Admin Lactated Ringer's 1,000 ml @ 0 mls/hr Q0M ONCE IV 11/28/22 18:00 11/28/22 18:01 DC 11/28/22 18:09 0 MLS/HR Lactated Ringer's 1,000 ml @ 0 mls/hr Q0M ONCE IV 11/28/22 19:00 11/28/22 19:01 DC 11/28/22 19:19 0 MLS/HR Ondansetron HCl 8 mg ONCE ONCE IVP 11/28/22 19:45 11/28/22 19:46 DC 11/28/22 19:48 8 MG Pantoprazole 40 mg ONCE ONCE IV 11/28/22 19:45 11/28/22 19:46 DC 11/28/22 19:48 40 MG (SEVERIANO HERNÁNDEZ DO) Vital Signs/I&O 11/28/22 11/28/22 11/28/22 16:31 18:15 20:04 Temp 36.7 Pulse 99 100 Resp 20 B/P (MAP) 165/100 (121) 129/91 Pulse Ox 98 98 O2 Delivery Nasal Cannula Room Air O2 Flow Rate 2.00 (SEVERIANO HERNÁNDEZ DO) Blood Pressure Mean: 121 Progress Progress Note : Progress Note 1800--ASSUMED CARE FROM DR. MENDEZ, LAB PENDING. IV FLUIDS ORDERED. PT SEEKING INPATIENT TREATMENT FOR SUBSTANCE ABUSE. PT HAS TALKED WITH [facility]E Nunez EARLIER TODAY. PT ADVISED THAT HE WOULD NEED TO BE SOBER BEFORE ADMIT THERE. PLAN IS TO DISMISS WITH RX FOR LIBRIUM AND HAVE PT FOLLOW UP WITH [facility]E JAFFE TOMORROW MORNING. SPEECH IS CLEAR AT THIS TIME. GIVEN: -IV FLUIDS -ZOFRAN -PROTONIX LABS: -CBC NORMAL -CMP WITH MILDLY ELEVATED LFT'S OTHERWISE NORMAL -ACETAMINOPHEN AND SALICYLATES NEGATIVE -ETOH 238 -UDS + FOR AMPHETAMINES/METHAMPHETAMINES 1999--PT IS NOW AWAKE, ALERT, BECOMING HOSTILE AND BELLIGERENT, YELLING/CURSING, SPEECH CLEAR AND GAIT STEADY, NOW WANTING TO LEAVE. DISCUSSED TEST RESULTS, MEDICATIONS, NEED FOR FOLLOW UP WITH [facility] JAFFE. (SEVERIANO HERNÁNDEZ DO) Departure Impression Primary Impression: Alcohol intoxication in active alcoholic Additional Impressions: Substance abuse Methamphetamine abuse Disposition: HOME, SELF-CARE Condition: Stable Departure-Patient Inst. Decision time for Depature: 20:00 (SEVERIANO HERNÁNDEZ DO) Referrals: [facility] (PCP/Family) Primary Care Physician Patient Instructions: Alcohol Use Disorder (DC), Polysubstance Use Disorder (DC) Add. Discharge Instructions: HOME, REST NO ALCOHOL!!! NO DRUGS!!! FOLLOW UP WITH [facility] JAFFE TOMORROW MORNING All discharge instructions reviewed with patient and/or family. Voiced understanding. Scripts Chlordiazepoxide HCl (Chlordiazepoxide HCl) 25 Mg Capsule 25 MG PO UD, #12 CAP Day one 2 tablets every 8 hours Day two 2 tablets every 12 hours Day three 2 tablets at bedtime. Prov: SEVERIANO HERNÁNDEZ DO 11/28/22 MALCOM MENDEZ MD Nov 28, 2022 17:12 SEVERIANO HERNÁNDEZ DO Nov 28, 2022 18:11
[2022-11-28 17:15] LABS: BASOPHILS # (AUTO) 0.1 10^3/uL (0.0-0.1); BASOPHILS % (AUTO) 1 % (0-10); EOSINOPHILS # (AUTO) 0.2 10^3/uL (0.0-0.3); EOSINOPHILS % (AUTO) 2 % (0-10); HEMATOCRIT 45 % (40-54); HEMOGLOBIN 15.8 g/dL (13.3-17.7); LYMPHOCYTES # (AUTO) 3.4 10^3/uL (1.0-4.0); LYMPHOCYTES % (AUTO) 37 % (12-44); MEAN CORPUSCULAR HEMOGLOBIN 30 pg (25-34); MEAN CORPUSCULAR HGB CONC 35 g/dL (32-36); MEAN CORPUSCULAR VOLUME 84 fL (80-99); MEAN PLATELET VOLUME 9.6 fL (9.0-12.2); MONOCYTES # (AUTO) 0.7 10^3/uL (0.0-1.0); MONOCYTES % (AUTO) 7 % (0-12); NEUTROPHILS # (AUTO) 4.7 10^3/uL (1.8-7.8); NEUTROPHILS % (AUTO) 52 % (42-75); PLATELET COUNT 250 10^3/uL (130-400)
[2022-11-28 17:29] LABS: ALBUMIN 4.4 GM/DL (3.2-4.5); CHLORIDE 100 MMOL/L (98-107); POTASSIUM 3.5 MMOL/L (3.6-5.0); SODIUM 141 MMOL/L (135-145)
[2022-11-28 17:30] LABS: CALCIUM 8.5 MG/DL (8.5-10.1)
[2022-11-28 17:31] LABS: GLUCOSE 75 MG/DL (70-105)
[2022-11-28 17:32] LABS: CARBON DIOXIDE 23 MMOL/L (21-32); TOTAL PROTEIN 7.2 GM/DL (6.4-8.2)
[2022-11-28 17:35] LABS: ALKALINE PHOSPHATASE 58 U/L (40-136); CREATININE SERUM 0.78 MG/DL (0.60-1.30); GFR ESTIMATED 118
[2022-11-28 17:36] LABS: BUN/CREATININE RATIO 12
[2022-11-28 17:38] LABS: ALANINE AMINOTRANSFERASE 65 U/L (0-55); SALICYLATE < 5.0 MG/DL (5.0-20.0)
[2022-11-28 17:48] LABS: ACETAMINOPHEN < 10 UG/ML (10-30)
[2022-11-28] MEDS ORDERED: LACTATED RINGERS 1,000 ML 1,000 ML IV ONE ×2 (18:00→19:00)
[2022-11-28] MEDS ORDERED: PANTOPRAZOLE INJECTION 40 MG VIAL IV ONE (19:45)
[2022-11-28] MEDS ORDERED: ONDANSETRON INJECTION 4 MG/2 ML (SDV) IVP ONE (19:45)
[2022-11-28] MEDS ORDERED: CHLO25CA10 PO (19:50)
[2022-11-28 20:04] VITALS: BP 129/91
[2022-11-28 20:09] LABS: AMPHETAMINE SCREEN, URINE POSITIVE (NEGATIVE); BARBITURATE SCREEN URINE NEGATIVE (NEGATIVE); CANNABINOID SCREEN, URINE NEGATIVE (NEGATIVE); COCAINE SCREEN URINE NEGATIVE (NEGATIVE); METHADONE STAT NEGATIVE (NEGATIVE); OPIATE SCREEN URINE NEGATIVE (NEGATIVE); OXYCODONE STAT NEGATIVE (NEGATIVE); PROPOXYPHENE STAT NEGATIVE (NEGATIVE); TRICYCLIC ANTIDEPRESSANTS SCRE NEGATIVE (NEGATIVE)
== END 2022-11-28 20:04 | disposition home or self-care (01) ==
LOC: EDUNIT# 16:17 → ER 16:21
DX: F10.129 Alcohol abuse with intoxication, unspecified (principal); F15.10 Other stimulant abuse, uncomplicated; Z20.822 Contact with and (suspected) exposure to COVID-19; Z59.00 Homelessness unspecified
CPT/HCPCS: 80053; 80306; 85025; 87636; 93005; 99284; G0480 ×3; 36415; 80320; 80329